=== PATIENT | female | born 1945 | race Caucasian/White ===

== ENCOUNTER 2020-01-08 15:36 | Outpatient (CLI) | payer MEDICARE, MEDICAID, SELFPAY ==
--- NOTE | 2020-01-08 | XR_ITS ---
WS: [id number] LEFT CALCANEUS TECHNIQUE: Lateral and tangential view. HISTORY: PAIN OF LEFT HEEL COMPARISON: None available. No fracture or bone destruction. There is a moderate to large calcaneal spur measuring 8.8 mm. No sadie ntifiable soft tissue thickening or fluid collection along the plantar aponeurosis. No soft tissue ed celestine. XR/XR calcaneus LT min 2V [id number] IMPRESSION: Moderate to large 8.8 mm calcaneal spur.
== END 2020-01-08 15:37 | disposition home or self-care (01) ==
PROVIDERS: Family Provider Family Medicine; Visit Provider Nurse Practitioner Family
DX: Z76.89 Persons encountering health services in other specified circumstances (principal)

== ENCOUNTER → 2020-01-29 13:18 | Outpatient (BNVA) | payer MEDICARE, MEDICAID, SELFPAY | PROVIDERS: Family Provider Family Medicine; Visit Provider Nurse Practitioner | DX: F20.5 Residual schizophrenia (principal) | CPT/HCPCS: 99213 ==

== ENCOUNTER 2020-04-06 14:51 | Outpatient (CLI) | payer MEDICARE, MEDICAID, SELFPAY | END 2020-04-06 14:52 | disposition home or self-care (01) | LOC: SPT 14:51 | PROVIDERS: Family Provider Family Medicine; Visit Provider Podiatrist Foot & Ankle Surgery | DX: Z46.89 Encounter for fitting and adjustment of other specified devices (principal); M72.2 Plantar fascial fibromatosis | CPT/HCPCS: 97760; L4397 ==

== ENCOUNTER → 2020-04-30 08:12 | Outpatient (BNVA) | payer MEDICARE, MEDICAID, SELFPAY | PROVIDERS: Family Provider Family Medicine; Visit Provider Nurse Practitioner | DX: F20.5 Residual schizophrenia (principal); F90.2 Attention-deficit hyperactivity disorder, combined type | CPT/HCPCS: 99213 ==

== ENCOUNTER → 2020-05-19 07:26 | Outpatient (BNVA) | payer MEDICARE, MEDICAID, SELFPAY | PROVIDERS: Family Provider Family Medicine; Referring Provider Nurse Practitioner Family; Visit Provider Specialist | DX: F20.5 Residual schizophrenia (principal); G40.909 Epilepsy, unspecified, not intractable, without status epilepticus; G31.84 Mild cognitive impairment of uncertain or unknown etiology | CPT/HCPCS: 96116; 99204 ==

== ENCOUNTER 2020-06-04 08:16 | Outpatient (CLI) | payer MEDICARE, MEDICAID, SELFPAY ==
[2020-06-04 10:31] LABS: Basophils # 0.2 10^3/uL (0.0-0.1); Basophils % 1.2 %; Eosinophils # 0.8 10^3/uL (0.0-0.8); Eosinophils % 6.1 %; Hematocrit 35.3 % (37.0-47.0); Hemoglobin 11.7 g/dL (11.5-15.3); Lymphocytes # 1.1 10^3/uL (0.8-4.8); Lymphocytes % 8.8 %; Mean Corpuscular HGB Conc 33.1 g/dL (30.0-36.0); Mean Corpuscular Hemoglobin 27.7 pg (28.0-34.0); Mean Corpuscular Volume 83.5 fL (81-99); Mean Platelet Volume 8.3 fL (7.4-10.4); Monocytes # 0.6 10^3/uL (0.2-0.9); Monocytes % 4.6 %; Neutrophils # 10.12 10^3/uL (1.8-7.7); Neutrophils % 78.9 %; Nucleated Red Blood Cells % 0 %; Platelet Count 431 10^3/cmm (130-400); Red Blood Count 4.23 10^6/uL (4.1-5.3); Red Cell Distribution Width 13.9 % (12.1-15.1); White Blood Count 12.8 10^3/uL (4.0-10.0)
[2020-06-04 11:04] LABS: LAB Peripheral Smear Sent for Review
[2020-06-04 11:12] LABS: Alanine Aminotransferase 19 U/L (0-33); Albumin Level 3.9 g/dL (3.5-5.2); Alkaline Phosphatase 191 IU/L (35-105); Anion Gap 15.3 (5-19); Aspartate Amino Transferase 14 U/L (0-32); Blood Urea Nitrogen 13 mg/dL (8-23); Calcium 8.6 mg/dL (8.5-10.5); Carbon Dioxide 26 mmol/L (22-29); Chloride 85 mmol/L (98-107); Globulin 3.2 g/dL (1.3-4.6); Glucose 142 mg/dL (65-115); Lactate Dehydrogenase 181 U/L (135-214); Osmolality Calculated 253 mOsm/kg (285-295); Potassium 4.3 mmol/L (3.5-5.1); Sodium 122 mmol/L (136-145); Total Bilirubin 0.2 mg/dL (0.15-1.2); Total Protein 7.1 g/dL (6.6-8.7)
[2020-06-04 11:29] LABS: Vitamin B12 > 2000 pg/mL (232-1245)
[2020-06-04 11:45] LABS: Erythrocyte Sedimentation Rate 25 mm/hr (0-15)
--- NOTE | 2020-06-04 12:25 | ONC CON_ITS ---
Dr. Aburto New Patient Note Patient: Ame Pascual Unit #: [id number]: 1945 Dicatated By: Sukhwinder Aburto M.D.Date of Visit: Jun 04, 2020 Onc MED New Patient/Consult Referring Physician: CORA GARCIA, F.N.P. Chief Complaint: Leukocytosis. History of Present Illness: This is a 75-year-old woman with a mild leukocytosis and thrombocytosis. This patient has longstanding bipolar disorder and schizophrenia. [facility] Her other medical illnesses include hypertension, hyperlipidemia, type 2 diabetes, and hypothyroidism. She reports having a history of mini strokes. She also reports having history of polio and rheumatic fever in childhood. I am asked to see her in regard to mildly elevated white blood cell and platelet counts. The available records include laboratory studies from 05/07/2020, at which time her CBC showed white blood cell count elevated at 17,900 and platelet count mildly elevated at 564,000. Her hemoglobin was low normal at 12.4 g with hematocrit 37%. The red cell indices were also in the low normal range. The reported differential included 89% granulocytes, 7% lymphocytes, and 3% monocytes. Comprehensive metabolic profile showed normal renal function with BUN 15 and creatinine 0.7 mg/dL. The bilirubin, SGOT, and SGPT T levels were all normal. The alkaline phosphatase was significantly elevated at 239/140 U/L. Her repeat CBC on 05/18/2020 showed similar findings with hemoglobin 12.3 g, white blood cell count 18,600, and platelet count 581,000. The CHEM profile showed just slightly elevated alkaline phosphatase at 184/140 U/L. In reviewing her records in [facility], there are total of 5 CBCs available ranging from May 2006 through October 2017. These all showed varying degrees of leukocytosis, ranging from 11,300 to 18,500 as well as mild to moderate elevated platelet counts, ranging from 366,000-607,000. Her hemoglobin has been consistently in the low normal range at 12 g. She has multiple cold complaints which are somewhat difficult to sort out, given her underlying psychiatric history. She does have somewhat limited activity, but she is able to do light work. Her ECOG score is 1. She has good appetite. She says her weight fluctuates up and down. She reports having a little fever every couple of days, but she does not actually take her temperature. She says her forehead just feels hot. She reports having associated chills and sweating. Her main complaint is pain in her legs which she describes as a shocking sensation. It occurs intermittently. She says that it started 15 years ago and that is been getting gradually worse. She also describes having numbness in her legs and tingling/burning on the bottoms of her feet. She has pain in her arms occasionally, and she also complains of having pain in the lower back. She has a variety of other complaints, none of which appear clinically relevant. Past Medical History: Her medical history includes bipolar disorder and schizophrenia, hypertension, hypothyroidism, and type II diabetes. She has reported history of ministrokes and reported history of polio and rheumatic fever in childhood. Past Surgical History: She has had arthroscopic right knee surgery. She reports having had hysterectomy/bilateral salpingectomy-oophorectomy and removal of a bone spur from the left heel, but I am not able to confirm that with records. Medications: Aspirin 1 Tablet (of 81 mg) Tablet, enteric coated Oral daily, Atorvastatin Calcium 1 Tablet (of 10 mg) Oral daily, Haloperidol 1.5 Tablet (of 10 mg) Oral daily, hydroCHLOROthiazide 1 Tablet (of 12.5 mg) Oral daily, Levothyroxine Sodium 1 Tablet (of 75 mcg) Oral daily, Loratadine 1 Tablet (of 10 mg) Oral daily, Losartan Potassium 1 Tablet (of 25 mg) Oral daily, metFORMIN HCl 1 Tablet (of 500 mg) Oral daily, Metoprolol Tartrate 1 Tablet (of 25 mg) Oral b.i.d., Omeprazole 1 Capsule (of 20 mg) Capsule Delayed Release Oral daily, Oxybutynin Chloride ER 1 Tablet (of 15 mg) Tablet SR 24 HR Oral daily, Trihexyphenidyl HCl 1 Tablet (of 2 mg) Oral daily Allergies: Geodon, Bgfhqlay-Ovofwyfph-Rplngxmx, and RisperDAL. Social History: Ms. Pascual is and she is retired. Ms. Pascual quit smoking 15 years ago but had smoked for 2 years. She has no history of drinking. Ms. Pascual reports the following support systems: lives alone, lives in an assisted living environment, supportive family/friends willing to assist with needs, and transportation problems exist and will require assistance. Her diet consists of regular meals. She indicates her activity level as: regular exercise. She has a history of smoking for a period of about 3 years, one carton of cigarettes per week. She quit smoking in 2004. She does not drink alcohol. She has had some alcohol use in the past, but never heavy. Family History: She indicates that her father of prostate cancer and that her mother had breast cancer. She also then claimed that 2 sisters have had breast cancer, but at least one of those was confirmed to be inaccurate. Review Of Symptoms: Constitutional - She has somewhat limited activity, she is able to do housework. Her appetite is good. She says her weight fluctuates up and down. She reports having a little fever every couple of days. She does not actually take her temperature, but her forehead feels warm. She has associated chills and sweating. Her ECOG score is 1, Eyes - She complains that her vision is sometimes blurry. She apparently has cataracts which are just being followed, ENMT - No hearing loss or tinnitus. No sinus congestion/drainage. She has had sore mouth associated with right lower dentures. She has a scratchy throat. No difficulty swallowing, Hematologic/Lymphatic - She has some bruising. No other bleeding, Respiratory - She says her breathing is sometimes hard. She has had a little bit of cough for the past several months. No pleuritic pain or hemoptysis, Cardiovascular - She has sharp twinges of chest pain pretty frequently, but mainly when she is going to bed at night. She does take nitroglycerin as needed. No palpitations, Gastrointestinal - She has nausea nearly every day. She sometimes has a little vomiting. She has occasional acid reflux. She has some constipation, which she manages with a laxative, typically about once a week. No blood in the stool or black stools, Genitourinary (F) - No dysuria or hematuria. She has urinary frequency with urgency and incontinence, Musculoskeletal - She has pain in her lower lumbar area. She reports having pain in her legs for 15 years, gradually getting worse. She occasionally has pain in her arms, Integumentary - No skin rash or other skin problems, Neurologic - She has a little headache. She occasionally has dizziness. She has an intermittent shocking sensation in both legs, and she has numbness in her legs intermittently. She also reports having tingling and burning on the bottoms of her feet, Psychiatric - She has anxiety and depression. She has difficulty falling asleep. Vital Signs: Performed on Jun 04, 2020 08:51: 5, 35.62 (HIGH), 1.88 sq.m, 61.75 in, 98 %, 60 /min, 22 /min, 141/90 mm(hg) (HIGH), 99.0 F (HIGH), and 193.2 lbs (HIGH). Physical Examination: Constitutional - She does not appear acutely ill, Eyes - Sclerae nonicteric. Conjunctivae clear, ENMT - No lesions noted in the oral cavity, Neck - No mass or thyromegaly, Hematologic/Lymphatic - No cervical, clavicular, or axillary adenopathy, Respiratory - Lungs are clear with good air movement bilaterally, Cardiovascular - Heart rhythm is regular. There is a I/ systolic murmur. There is no gallop or rub noted, Abdomen - Soft and non-tender. Liver and spleen are not enlarged. There is no abdominal mass or ascites noted and there is no inguinal adenopathy, Back/Spine - No spine or CVA tenderness noted, Extremities - No edema. Pedal pulses are palpable bilaterally, Integumentary - No rashes. No suspicious skin lesions noted, Neurologic - No focal neurologic deficits noted. Impression: 1. Patient with varying degrees of leukocytosis and thrombocytosis dating back to at least 2005. Given the duration and lack of overall progression, it is almost certainly a reactive process, though an underlying cause is not evident by clinical evaluation. 2. She has longstanding bipolar disorder and schizophrenia, [facility]. Her other medical illnesses include: 3. Hypertension. 4. Hyperlipidemia. 5. Type 2 diabetes. 6. Hypothyroidism. 7. She reports having history of mini strokes. 8. She reports having history of polio and rheumatic fever in childhood. Plan: The laboratory findings and clinical implications were reviewed with the patient. She has mildly elevated blood counts dating back to at least 2005. It has not been progressive, and it is extremely unlikely that it would represent a myeloproliferative process. She also had a moderately elevated alkaline phosphatase level, but that seems to have been a transient phenomenon, and not likely of clinical significance. As a precaution, I will recheck the blood count today along with comprehensive metabolic profile, sed rate, LDH level, and B12 level. With her red cell indices being borderline low, I also will check serum iron studies. In addition, I will request a FISH study for BCR/abl, and I will review the blood smear. She will have further evaluation as indicated. Signed By: Sukhwinder Aburto M.D. <<Signature on File>>
[2020-06-04 15:34] LABS: Iron 35 ug/dL (37-145); Percent Saturation 11.1 % (20-50); Total Iron Binding Capacity 313 mcg/dl; Unsaturated Iron Binding 278 ug/dL (112-347)
[2020-06-17 13:01] LABS: Miscellaneous Test See Scanned Lab Rpt
== END 2020-06-04 08:17 | disposition home or self-care (01) ==
LOC: ONCMED 08:19
PROVIDERS: PCP Nurse Practitioner Family; Referring Provider Nurse Practitioner Family; Visit Provider Internal Medicine Medical Oncology
DX: D72.829 Elevated white blood cell count, unspecified (principal); I10 Essential (primary) hypertension; E78.5 Hyperlipidemia, unspecified; E11.9 Type 2 diabetes mellitus without complications; E03.9 Hypothyroidism, unspecified; F31.9 Bipolar disorder, unspecified; F20.9 Schizophrenia, unspecified; Z86.73 Personal history of transient ischemic attack (TIA), and cerebral infarction without residual deficits; Z86.12 Personal history of poliomyelitis; Z79.84 Long term (current) use of oral hypoglycemic drugs
CPT/HCPCS: 36415; 80053; 82607; 83540; 83550; 83615; 85025; 85651; 88374; 99205

== ENCOUNTER → 2020-07-23 09:31 | Outpatient (BNVA) | payer MEDICARE, MEDICAID, SELFPAY | PROVIDERS: PCP Nurse Practitioner Family; Visit Provider Nurse Practitioner | DX: F20.5 Residual schizophrenia (principal) | CPT/HCPCS: 99213 ==

== ENCOUNTER → 2020-10-20 08:09 | Outpatient (BNVA) | payer MEDICARE, MEDICAID, SELFPAY | PROVIDERS: PCP Nurse Practitioner Family; Visit Provider Nurse Practitioner | DX: F20.5 Residual schizophrenia (principal) | CPT/HCPCS: 99213 ==

== ENCOUNTER 2020-11-08 15:30 | Outpatient (CLI) | payer MEDICARE, MEDICAID, SELFPAY ==
--- NOTE | 2020-11-08 15:43 | CT_ITS ---
WS: [id number] CT HEAD TECHNIQUE: Noncontrast CT of the head obtained from the skullbase to the vertex. CLINICAL INFORMATION: LEFT LEG WEAKNESS COMPARISON: None. DLP: 925.[address] scans at [facility] use at least one of these dose optimization techniques: automat ed exposure control; mA and/or kV adjustment per patient size (includes targeted exams where dose is matched to clinical indication); or iterative reconstruction. FINDINGS: No evidence of intracranial hemorrhage or mass effect. Ventricular system and basal cisterns are fuller nt. Moderate small vessel changes with moderate parenchymal volume loss. Periventricular small vessel changes. Tiny chronic lacunar infarct right lateral basal ganglia. No extra-axial fluid collections. No evidence of mass or mass effect. Paranasal sinuses and mastoid air cells are well aerated. .Normal visualized soft tissues. CT/CT head wo con* [id number] IMPRESSION: 1. No evidence of intracranial hemorrhage or mass effect. 2. Moderate small vessel changes with moderate parenchymal volume loss. 3. No acute intracranial findings.
== END 2020-11-08 15:31 | disposition home or self-care (01) ==
LOC: RADWPI 15:35
PROVIDERS: PCP Nurse Practitioner Family; Visit Provider Nurse Practitioner Family
DX: M62.81 Muscle weakness (generalized) (principal)
CPT/HCPCS: 70450

== ENCOUNTER → 2021-01-18 08:05 | Outpatient (BNVA) | payer MEDICARE, MEDICAID, SELFPAY | PROVIDERS: PCP Nurse Practitioner Family; Visit Provider Nurse Practitioner | DX: F20.5 Residual schizophrenia (principal); G31.84 Mild cognitive impairment of uncertain or unknown etiology | CPT/HCPCS: 99214 ==

== ENCOUNTER → 2021-04-19 07:42 | Outpatient (BNVA) | payer MEDICARE, MEDICAID, SELFPAY | PROVIDERS: PCP Nurse Practitioner Family; Visit Provider Nurse Practitioner | DX: F20.5 Residual schizophrenia (principal); G31.84 Mild cognitive impairment of uncertain or unknown etiology | CPT/HCPCS: 99214 ==

== ENCOUNTER → 2021-07-12 07:32 | Outpatient (BNVA) | payer MEDICARE, MEDICAID, SELFPAY | PROVIDERS: PCP Nurse Practitioner Family; Visit Provider Nurse Practitioner | DX: F20.5 Residual schizophrenia (principal); G31.84 Mild cognitive impairment of uncertain or unknown etiology | CPT/HCPCS: 99214 ==

== ENCOUNTER 2021-08-08 10:35 | Emergency (ER) | payer MEDICARE, MEDICAID, SELFPAY ==
[2021-08-08] VITALS (50 sets, daily range): BP systolic 106–178; BP diastolic 64–111; PULSE 78–102; RESP 16–18; TEMP 37.4; O2SAT 92–100; BMI 34.0
--- NOTE | 2021-08-08 10:44 | XRR_ITS ---
PROCEDURE INFORMATION: Exam: XR Chest Exam date and time: 08/08/2021 10:44 AM Age: 75 years old Clinical indication: Patient HX: History--fall this morning, dizziness, shortness of breath; Additional info: Dyspnea/cough TECHNIQUE: Imaging protocol: XR of the chest. Views: 1 view. COMPARISON: CR XR chest 2V* [id number] 08/06/2021 12:44 PM FINDINGS: Lungs: Unremarkable. No consolidation. Pleural spaces: Unremarkable. No pleural effusion. No pneumothorax. Heart/Mediastinum: Unremarkable. No cardiomegaly. Bones/joints: Unremarkable. XR/XR chest 1V portable [id number] IMPRESSION: No acute findings.
--- NOTE | 2021-08-08 10:45 | ECG_ITS ---
[facility] Test Date: 2021-08-08 Pat Name: Ame Pascual Department: Room: Gender: Female Proc Tech: : 1945 Requested By: Latrell Jackson Order Number: [id number] Reading MD: Measurements Intervals [place] Rate: 69 P: 60 WA: 187 QRS: 4 QRSD: 83 T: 31 QT: 424 QTc: 456 Interpretive Statements SINUS RHYTHM Compared to ECG 11/16/2017 15:08:33 Sinus tachycardia no longer present Incomplete right bundle-branch block no longer present [id number]
--- NOTE | 2021-08-08 10:52 | W.ED.SYNCOPE ---
HPI - Syncope General: Stated Complaint: LIGHT HEAD, SYNCOPE, PNEUMONIA Time Seen by Provider: 08/08/21 10:37 History of Present Illness: HPI narrative: 75-year-old female presents to the emergency room with complaints of lightheadedness near syncopal episode. She lives at an apartment in assisted living locally she was told yesterday she had pneumonia and started on antibiotics and inhaler. She refused by the 13th got lightheaded and dizzy after she got out of bed states she fell. She complaining of pain in her left hip and in her head. Patient does take aspirin is not on any other blood thinners. complaint: almost passed out Onset (ago): minute(s) Prodromal symptoms: lightheaded Witnessed: No Context: getting out of bed Injuries sustained associated with event: head Associated symptoms: Deny abdominal pain, chest pain, fever(s), headache(s), lightheadedness, nausea, short of breath, vertigo or weakness Treatments prior to arrival: none Review of Systems Const: Denies: fever(s) Card: Denies: chest pain or lightheadedness GI: Denies: abdominal pain or nausea Neuro: Denies: headache(s) or vertigo PFSH ED PFSH: Medical History (Updated 08/08/21 @ 15:13 by Latrell Vivar DO) Chronic headache Hypertension Hypothyroid Residual schizophrenia Rheumatoid arthritis Surgical History Status post debridement of bone spur Family History Other Cancer Denies family history of Diabetes Social History Smoking and tobacco status: former smoker Household members: none Housing: Apartment Current occupational status: retired Physical Exam Const: COMMON NORMALS: no acute distress GENERAL APPEARANCE: cooperative and comfortable ORIENTATION/CONSCIOUSNESS: Yes awake, Yes oriented to person, Yes oriented to place and Yes oriented to time HENMT: COMMON NORMALS: normocephalic, atraumatic and hearing grossly normal bilaterally HEAD & SCALP: normocephalic and atraumatic Eye: COMMON NORMALS: Equal, round and reactive pupils present, EOMs intact bilaterally, conjunctivae normal and no scleral icterus CONJUNCTIVA: Yes conjunctivae normal PUPIL: Yes Equal, round and reactive pupils present Neck/C-Spine: COMMON NORMALS: full ROM, no lymphadenopathy, supple and no JVD Resp: COMMON NORMALS: normal respiratory effort, No retractions, No use of accessory muscles and clear to auscultation bilaterally AUSCULTATION: clear to auscultation bilaterally Cardio: COMMON NORMALS: no JVD, regular rate, regular rhythm and No murmurs present (Cardio) RATE: regular rate RHYTHM: regular rhythm GI: COMMON NORMALS: Soft to palpation and No hepatosplenomegaly present AUSCULTATION: Yes normoactive bowel sounds PALPATION: Yes Soft to palpation, No Tenderness to palpation present (GI), No Guarding due to palpation present (GI) and Yes No hepatosplenomegaly present Extremity: COMMON NORMALS: normal to inspection, capillary refill normal, no clubbing, cyanosis or edema, no calf tenderness and no pedal edema Neuro: SENSORIUM/ORIENTATION: Yes oriented to person, Yes oriented to place and Yes oriented to time Skin: COMMON NORMALS: no rashes or lesions noted GENERAL SKIN EXAM: no rashes or lesions noted Course Vital Signs: Vital signs: Vital Signs Temperature 99.4 F 08/08/21 10:58 Pulse Rate 87 08/08/21 13:00 Respiratory Rate 16 08/08/21 13:00 Blood Pressure 177/76 08/08/21 13:10 Pulse Oximetry 97 08/08/21 15:00 MDM - Syncope MDM Narrative: Medical decision making narrative: Waiting on her second troponin on went to talk to the patient about the results. She is orthostatic neck that was what caused her problem initially and seen her with she had complained a little bit discomfort in the left leg but was able to move it fairly aggressively through a full range of motion without it causing any pain. She was complaining of pain worsening since then so it x-ray was done it was negative. Remainder of her labs and imaging reviewed as on the chart. She did have elevated calcium but her ionized calcium is normal. We will have asked her stop the hydrochlorothiazide. She will need further work-up for hypogammaglobinemia and evaluation of her thyroids and parathyroids. She is otherwise asymptomatic at this time this can be completed as an outpatient we will go and discharge her home for now after fluid she is feeling somewhat better. Chest x-ray was negative any she can stop the oral antibiotics there is no evidence of pneumonia. On initial exam patient was orthostatic that improved at the time of discharge Lab Data: Labs: Lab Results 08/08/21 08/08/21 08/08/21 11:10 11:10 11:10 WBC 11.8 10^3/uL H 10 ^3/uL (4.0-10.0) RBC 4.67 10^6/uL 10^6 /uL (4.1-5.3) Hgb 13.2 g/dL g/dL (11.5-15.3) Hct 39.0 % % (37.0-47.0) MCV 83.5 fl fl (81-99) MCH 28.3 pg pg (28.0-34.0) MCHC 33.8 g/dL g/dL (30.0-36.0) RDW 13.8 % % (12.1-15.1) Plt Count 427 10^3/cmm H 10 ^3/cmm (130-400) MPV 8.6 fL fL (7.4-10.4) Neut % (Auto) 78.5 % % Lymph % (Auto) 12.1 % % Crane % (Auto) 5.7 % % Eos % (Auto) 2.3 % % Baso % (Auto) 0.7 % % Neut # (Auto) 9.30 10^3/uL H 10 ^3/uL (1.8-7.7) Lymph # (Auto) 1.4 10^3/uL 10^3/ uL (0.8-4.8) Crane # (Auto) 0.7 10^3/uL 10^3/ uL (0.2-0.9) Eos # (Auto) 0.3 10^3/uL 10^3/ uL (0.0-0.8) Baso # (Auto) 0.1 10^3/uL 10^3/ uL (0.0-0.1) Nucleated RBC % (a uto) 0 % % Nucleated RBCs # 0.0 /100WBC /100W BC Sodium 130 mmol/L L mmol /L (136-145) Potassium 3.8 mmol/L mmol/L (3.5-5.1) Chloride 90 mmol/L L mmol/ L (98-107) Carbon Dioxide 28 mmol/L mmol/L (22-29) Anion Gap 15.8 (5-19) BUN 10 mg/dL mg/dL (8-23) Creatinine 0.8 mg/dL mg/dL (0.5-0.9) GFR Calculation Not Reportable Glucose 148 mg/dL H mg/dL (65-115) Calculated Osmolal ity 272 mOsm/kg L mOs m/kg (285-295) Calcium 11.9 mg/dL H mg/d L (8.5-10.5) Ionized Calcium Me as Total Bilirubin 0.2 mg/dL mg/dL (0.15-1.2) AST 15 U/L U/L (0-32) ALT 33 U/L U/L (0-33) Alkaline Phosphata se 180 IU/L H IU/L (35-105) Troponin T Baselin e 16 ng/L H ng/L (0-10) Troponin T 120 Min [place] Delta Troponin T Total Protein 6.6 g/dL g/dL (6.6-8.7) Albumin 3.8 g/dL g/dL (3.5-5.2) Globulin 2.8 g/dL g/dL (1.3-4.6) 08/08/21 08/08/21 13:15 13:55 WBC RBC Hgb Hct MCV MCH MCHC RDW Plt Count MPV Neut % (Auto) Lymph % (Auto) Crane % (Auto) Eos % (Auto) Baso % (Auto) Neut # (Auto) Lymph # (Auto) Crane # (Auto) Eos # (Auto) Baso # (Auto) Nucleated RBC % (a uto) Nucleated RBCs # Sodium Potassium Chloride Carbon Dioxide Anion Gap BUN Creatinine GFR Calculation Glucose Calculated Osmolal ity Calcium Ionized Calcium Me as 1.3 mmol/L mmol/L (1.1-1.4) Total Bilirubin AST ALT Alkaline Phosphata se Troponin T Baselin e Troponin T 120 Min [place] [place] 12.78 ng/L H ng/L (0-10) Delta Troponin T -3.22 ABS# L ABS# (0-10) Total Protein Albumin Globulin Discharge Plan Discharge Patient Disposition: Home Clinical Impression: Orthostasis, Hypercalcemia Condition: Stable Prescriptions: Discontinued hydrochlorothiazide 12.5 mg capsule 12.5 mg PO QAM RF: 0 doxycycline hyclate 100 mg capsule 100 mg PO BID RF: 0 No Action loratadine 10 mg capsule 10 mg PO QAM RF: 0 losartan [Cozaar] 25 mg tablet 25 mg PO QAM RF: 0 aspirin [Aspirin Low Dose] 81 mg tablet,delayed release (DR/EC) 81 mg PO QAM RF: 0 oxybutynin chloride 15 mg tablet extended release 24hr 15 mg PO QAM RF: 0 (DME) Night Splint See Rx Instructions .ROUTE .MEDSUPPLY Qty: 1 RF: 0 atorvastatin 10 mg tablet 10 mg PO BEDTIME RF: 0 levothyroxine 88 mcg tablet 88 mcg PO QAM RF: 0 famotidine 20 mg tablet 20 mg PO QAM RF: 0 albuterol sulfate 90 mcg/actuation HFA aerosol inhaler 2 puff INHALATION Q4H PRN (Reason: Shortness Of Breath) RF: 0 metformin 500 mg tablet extended release 24 hr 500 mg PO QAM RF: 0 metoprolol tartrate 25 mg Tablet 25 mg PO QAM RF: 0 nitrofurantoin monohyd/m-cryst 100 mg capsule 100 mg PO BID RF: 0 haloperidol 10 mg tablet 15 mg PO BEDTIME RF: 0 trihexyphenidyl 2 mg tablet 2 mg PO BEDTIME RF: 0 multivitamin Tablet 1 tab PO DAILY RF: 0 Discharge Orders: Discharge ED (Routine); Ordered 08/08/21 Ordered By: Latrell Vivar Referrals: Niecy Cevallos FNP [Primary Care Provider] - Discharge Diet: Usual diet Discharge Activity: Increase activity as tolerated Patient Instructions: Opioid Safety Activity Restrictions/Additional Instructions: Follow-up with your primary care doctor for elevated calcium within the next week Coding Level of Care Code ED Vessel Scrapper Helper for Chg Fwd Exam Comprehensive
[2021-08-08 11:26] LABS: Basophils # 0.1 10^3/uL (0.0-0.1); Basophils % 0.7 %; Eosinophils # 0.3 10^3/uL (0.0-0.8); Eosinophils % 2.3 %; Hemoglobin 13.2 g/dL (11.5-15.3); Lymphocytes # 1.4 10^3/uL (0.8-4.8); Lymphocytes % 12.1 %; Mean Corpuscular HGB Conc 33.8 g/dL (30.0-36.0); Mean Corpuscular Hemoglobin 28.3 pg (28.0-34.0); Mean Corpuscular Volume 83.5 fl (81-99); Mean Platelet Volume 8.6 fL (7.4-10.4); Monocytes # 0.7 10^3/uL (0.2-0.9); Monocytes % 5.7 %; Neutrophils % 78.5 %; Nucleated Red Blood Cells % 0 %; Platelet Count 427 10^3/cmm (130-400); Red Blood Count 4.67 10^6/uL (4.1-5.3); Red Cell Distribution Width 13.8 % (12.1-15.1); White Blood Count 11.8 10^3/uL (4.0-10.0)
[2021-08-08 11:42] LABS: Alanine Aminotransferase 33 U/L (0-33); Albumin Level 3.8 g/dL (3.5-5.2); Alkaline Phosphatase 180 IU/L (35-105); Anion Gap 15.8 (5-19); Aspartate Amino Transferase 15 U/L (0-32); Blood Urea Nitrogen 10 mg/dL (8-23); Calcium 11.9 mg/dL (8.5-10.5); Carbon Dioxide 28 mmol/L (22-29); Chloride 90 mmol/L (98-107); Globulin 2.8 g/dL (1.3-4.6); Glucose 148 mg/dL (65-115); Osmolality Calculated 272 mOsm/kg (285-295); Potassium 3.8 mmol/L (3.5-5.1); Sodium 130 mmol/L (136-145); Total Bilirubin 0.2 mg/dL (0.15-1.2); Total Protein 6.6 g/dL (6.6-8.7)
[2021-08-08 11:43] LABS: Troponin(5th) Baseline 16 ng/L (0-10)
--- NOTE | 2021-08-08 11:47 | PC.PHAR ---
PT STATES HER FAMILY ZEUS TAKES CARE OF HER MEDICATIONS-SCHULZ STATES THE PT TAKES METOPROLOL TARTRATE 25MG PO [facility] FILLED ON 06/28/21 90D/S FOR 25MG BID-NOTES ARE MADE IN THE PHARMACY COMMENTS
[2021-08-08] MEDS: sodium chloride 0.9% 1,000 ML 999 ML IV (12:44)
--- NOTE | 2021-08-08 12:45 | ECG_ITS ---
[facility] Test Date: 2021-08-08 Pat Name: Ame Pascual Department: Room: Gender: Female Student Assistant: : 1945 Requested By: Latrell Jackson Order Number: [id number] Reading MD: Measurements Intervals [place] Rate: 80 P: 69 MS: 189 QRS: 11 QRSD: 88 T: 31 QT: 402 QTc: 465 Interpretive Statements SINUS RHYTHM WITH OCCASIONAL VENTRICULAR PREMATURE COMPLEXES Compared to ECG 08/08/2021 10:55:37 Ventricular premature complex(es) now present [id number]
[2021-08-08 13:53] LABS: Troponin 5 2HR 12.78 ng/L (0-10)
[2021-08-08 14:01] LABS: Troponin 5 2HR Delta -3.22 ABS# (0-10)
[2021-08-08 14:46] LABS: Ionized Calcium 1.3 mmol/L (1.1-1.4)
--- NOTE | 2021-08-08 14:47 | XRR_ITS ---
PROCEDURE INFORMATION: Exam: XR Left Hip Exam date and time: 08/08/2021 2:47 PM Age: 75 years old Clinical indication: Patient HX: History--left hip pain, no known injury, possibly fell out of bed TECHNIQUE: Imaging protocol: XR Left hip. Views: 2 or 3 views hip with pelvis when performed. COMPARISON: No relevant prior studies available. FINDINGS: Bones/joints: Unremarkable. No acute fracture. There is osteopenia. Soft tissues: Unremarkable. XR/XR hip LT 2-3V wo/w pel* [id number] IMPRESSION: No acute findings. If there is desire for further evaluation, a CT scan could be performed.
== END 2021-08-08 15:42 | disposition home or self-care (01) ==
PROVIDERS: Emergency Provider Family Medicine; PCP Nurse Practitioner Family
DX: I95.1 Orthostatic hypotension (principal); E83.52 Hypercalcemia; Z79.82 Long term (current) use of aspirin; Z79.84 Long term (current) use of oral hypoglycemic drugs; I10 Essential (primary) hypertension; Z87.891 Personal history of nicotine dependence
CPT/HCPCS: 71045; 73502; 80053; 82330; 84484; 85025; 93005; 96360; 99284; J7030

== ENCOUNTER → 2021-08-15 13:14 | Outpatient (BNVA) | payer MEDICARE, MEDICAID, SELFPAY | PROVIDERS: PCP Nurse Practitioner Family; Referring Provider Physician Assistant; Visit Provider Nurse Practitioner Family | DX: N39.0 Urinary tract infection, site not specified (principal) | CPT/HCPCS: 81003; 87086 ==

== ENCOUNTER 2021-10-05 10:54 | Outpatient (CLI) | payer MEDICARE, MEDICAID, SELFPAY ==
--- NOTE | 2021-10-05 10:59 | MM_ITS ---
WS: [id number] BILATERAL DIGITAL SCREENING MAMMOGRAPHY WITH CAD CLINICAL INFORMATION: SCREENING HISTORY: Screening mammogram. No current complaints. COMPARISON: October 30, 2013 TECHNIQUE: Bilateral CC and MLO views. FINDINGS: Scattered fibroglandular densities bilaterally. Stable benign punctate calcifications. 7 mm ovoid nod ule along the right posterior nipple line. This is nonspecific and recommend further evaluation with right diagnostic mammography and ultrasound. Left breast is unchanged. No other suspicious abnormalit y. MM/[place] [id number] IMPRESSION: BI-RADS: 0-Incomplete: Need additional imaging evaluation FOLLOW UP: Need Additional Imaging Recommend right diagnostic mammography and ultrasound for further evaluation.
== END 2021-10-05 10:55 | disposition home or self-care (01) ==
LOC: RADSHAW 10:57
PROVIDERS: PCP Nurse Practitioner Family; Visit Provider Nurse Practitioner Family
DX: Z12.31 Encounter for screening mammogram for malignant neoplasm of breast (principal)
CPT/HCPCS: 77067

== ENCOUNTER → 2021-10-06 11:12 | Outpatient (BNVA) | payer MEDICARE, MEDICAID, SELFPAY | PROVIDERS: PCP Nurse Practitioner Family; Visit Provider Nurse Practitioner | DX: G31.84 Mild cognitive impairment of uncertain or unknown etiology (principal); F20.5 Residual schizophrenia | CPT/HCPCS: 99214 ==

== ENCOUNTER 2021-10-21 13:20 | Outpatient (CLI) | payer MEDICARE, MEDICAID, SELFPAY ==
--- NOTE | 2021-10-21 13:25 | US_ITS ---
WS: [id number] RIGHT DIGITAL MAMMOGRAPHY WITH CAD CLINICAL INFORMATION: 7MM NODULE COMPARISON: October 05, 2021 TECHNIQUE: 4 views of the right breast were obtained. FINDINGS: Scattered fibroglandular densities of the right breast. Stable 7 mm ovoid density along the right posterior nipple line. This persists on spot compression vi ews and ultrasound is pending. ULTRASOUND BREAST RIGHT TECHNIQUE: Ultrasound right breast focused area of concern. CLINICAL INFORMATION: 7MM NODULE COMPARISON: None. FINDINGS: Ultrasound right breast 12:00 position 3 cm from the nipple. Incidental simple cyst measuring 6 mm 12 :00 position. Slight ductal ectasia. No suspicious cystic or solid lesions. No lesions to target for biopsy. US/US breast RT limited* [id number] IMPRESSION: BI-RADS: 2-Benign FOLLOW UP: 1 Year Follow-up Recommend return to annual screening mammography.
== END 2021-10-21 13:21 | disposition home or self-care (01) ==
LOC: RADSHAW 13:24
PROVIDERS: PCP Nurse Practitioner Family; Visit Provider Nurse Practitioner Family
DX: N63.10 Unspecified lump in the right breast, unspecified quadrant (principal); N60.41 Mammary duct ectasia of right breast
CPT/HCPCS: 76642; 77065

== ENCOUNTER → 2021-12-29 12:00 | Outpatient (BNVA) | payer MEDICARE, MEDICAID, SELFPAY | PROVIDERS: PCP Nurse Practitioner Family; Visit Provider Nurse Practitioner | DX: F20.5 Residual schizophrenia (principal); G31.84 Mild cognitive impairment of uncertain or unknown etiology | CPT/HCPCS: 99214 ==

== ENCOUNTER → 2022-03-15 07:59 | Outpatient (BNVA) | payer MEDICARE, MEDICAID, SELFPAY | PROVIDERS: PCP Nurse Practitioner Family; Referring Provider Nurse Practitioner Family; Visit Provider Specialist | DX: M17.0 Bilateral primary osteoarthritis of knee (principal) | CPT/HCPCS: 73560; 73565; 99204 ==

== ENCOUNTER → 2022-03-20 13:07 | Outpatient (BNVA) | payer MEDICARE, MEDICAID, SELFPAY | PROVIDERS: PCP Nurse Practitioner Family; Visit Provider Nurse Practitioner | DX: G31.84 Mild cognitive impairment of uncertain or unknown etiology (principal); F20.5 Residual schizophrenia | CPT/HCPCS: 99214 ==

== ENCOUNTER → 2022-07-11 15:42 | Outpatient (BNVA) | payer MEDICARE, MEDICAID, SELFPAY | PROVIDERS: PCP Nurse Practitioner Family; Referring Provider Specialist; Visit Provider Specialist | DX: G62.89 Other specified polyneuropathies (principal) | CPT/HCPCS: 95909; 95911 ==

== ENCOUNTER → 2022-08-07 15:44 | Outpatient (BNVA) | payer MEDICARE, MEDICAID, SELFPAY | PROVIDERS: PCP Nurse Practitioner Family; Visit Provider Specialist | DX: G63 Polyneuropathy in diseases classified elsewhere (principal) | CPT/HCPCS: 99213 ==

== ENCOUNTER 2022-12-30 12:25 | Inpatient (IN) | payer MEDICARE, MEDICAID, SELFPAY ==
[2022-12-30] VITALS (26 sets, daily range): BP systolic 118–187; BP diastolic 60–108; PULSE 80–125; RESP 11–23; TEMP 36.7–38.2; O2SAT 95–100; BMI 31.7
--- NOTE | 2022-12-30 12:35 | ECG_ITS ---
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 Measurements Intervals [place] Rate: 88 P: 81 [place]: 184 QRS: 42 QRSD: 81 T: 48 QT: 388 QTc: 470 Interpretive Statements SINUS RHYTHM INTERPRETATION BASED ON A DEFAULT AGE OF 40 YEARS Compared to ECG 08/08/2021 12:45:57 Ventricular premature complex(es) no longer present Electronically Signed On 12-30-2022 15:19:41 BOTTLE CAPPING MACHINE OPERATOR by Frederick Tinoco M.D. [email or web address]
--- NOTE | 2022-12-30 12:39 | XRR_ITS ---
PROCEDURE INFORMATION: Exam: XR Chest Exam date and time: 12/30/2022 12:55 PM Age: 77 years old Clinical indication: Pain; Chest pressure; Additional info: Cp TECHNIQUE: Imaging protocol: Radiologic exam of the chest. Views: 1 view. COMPARISON: CR XR chest 1V portable [id number] 08/08/2021 10:49 AM FINDINGS: Lungs: Lung volumes are somewhat decreased which may be due to body habitus. No infiltrates. Pleural spaces: Unremarkable. No pleural effusion. No pneumothorax. Heart/Mediastinum: Unremarkable. No cardiomegaly. Bones/joints: Unremarkable. XR/XR chest 1V portable [id number] IMPRESSION: Decreased lung volumes otherwise negative chest.
--- NOTE | 2022-12-30 12:40 | W.ED.CHESTPA ---
HPI - Chest Pain General: Chief Complaint: Chest Pain Stated Complaint: CHEST PAIN Time Seen by Provider: 12/30/22 12:28 Source: patient and EMS Mode of arrival: EMS Limitations: no limitations History of Present Illness: This patient was transported to the emergency department from her home. She states that the predominant reason she called EMS is because she had episode of chest pain last night approximately 1215 that woke her from sleep and then lasted for a very short time 5 minutes or less and then she went back to sleep she states she had other episodes through the night. She states that today approximately 12:00 noon she developed chest pain and contacted EMS. Upon arrival EMS noted a unremarkable twelve-lead EKG but proceeded to give her nitroglycerin and aspirin. She had improvement in her symptoms she thinks after the nitroglycerin. She normally has nitroglycerin at home but did not take any in the last 24 hours. She does have a history of coronary artery disease and states she had a heart attack in the past. She also relates that over the past 4 to 5 days she has had intermittent fevers body aches chills and felt weak. She denies any known exposure to infectious disease. She states she has had a nonproductive cough. She has not had any vomiting or diarrhea but has had decreased oral intake. She is fully immunized against COVID as well as current influenza strain. MD complaint: chest heaviness Onset: during rest Pain location: substernal Relieving factors: nitroglycerin Associated symptoms: Reports fever(s) and nausea; Deny abdominal pain, dyspnea, palpitations, syncope or vomiting Review of Systems Const: Reports: fever(s), body aches and change in appetite Eyes: Denies: change in vision ENMT: Reports: throat pain; Denies: odynophagia, hoarseness, nasal discharge or nasal congestion Card: Reports: chest pain; Denies: palpitations, syncope or pre-syncope Resp: Reports: non-productive cough; Denies: dyspnea, productive cough, wheezing or stridor GI: Reports: nausea; Denies: abdominal pain, vomiting or diarrhea : Denies: flank pain, difficulty voiding, dysuria or urinary frequency Musc: Denies: neck pain, back pain, extremity pain or extremity swelling Skin/Breast: Denies: rash Neuro: Denies: headache(s), numbness in extremities or weakness in extremities PFSH ED PFSH: Medical History Chronic headache Hypertension Hypothyroid Mixed stress and urge urinary incontinence Psychiatric care Recurrent UTI Residual schizophrenia Rheumatoid arthritis Surgical History Status post debridement of bone spur Family History Mother CAD (coronary artery disease) Father CAD (coronary artery disease) Other Cancer Social History Smoking and tobacco status: never smoked Household members: none Housing: Apartment Current occupational status: retired Physical Exam Narrative: EXAM NARRATIVE: She appears to be comfortable in no acute distress. She does answer questions and is slow deliberate fashion but ultimately gets to an accurate answer. Const: COMMON NORMALS: no acute distress, average body habitus and patient oriented x3 GENERAL APPEARANCE: cooperative HENMT: COMMON NORMALS: normocephalic, Normal nasal mucous membranes and turbinates present, moist oral mucous membranes and oropharynx normal HEAD & SCALP: normocephalic FACE & SINUS: normal facial exam NOSE: Normal nasal mucous membranes and turbinates present Eye: COMMON NORMALS: Equal, round and reactive pupils present, conjunctivae normal and no scleral icterus CONJUNCTIVA: Yes conjunctivae normal PUPIL: Yes Equal, round and reactive pupils present Neck/C-Spine: COMMON NORMALS: full ROM, no lymphadenopathy, supple, no JVD and No carotid bruits Chest: COMMONS NORMALS: normal inspection of the chest Resp: COMMON NORMALS: normal respiratory effort, No retractions, No use of accessory muscles and clear to auscultation bilaterally AUSCULTATION: clear to auscultation bilaterally Cardio: COMMON NORMALS: no JVD, regular rate, regular rhythm, No murmurs present (Cardio) and Peripheral pulses 2+ throughout RATE: regular rate RHYTHM: regular rhythm PERIPHERAL PULSES: Peripheral pulses 2+ throughout GI: COMMON NORMALS: Normal to inspection, nondistended, normoactive bowel sounds present, Soft to palpation, non-tender and No hepatosplenomegaly present PALPATION: Yes Soft to palpation and Yes No hepatosplenomegaly present Back/Pelvis: COMMON NORMALS: thoracic and lumbar spine normal to inspection, no thoracic nor lumbar tenderness, thoraco-lumbar ROM normal and straight leg raise negative bilaterally Extremity: COMMON NORMALS: normal to inspection, full ROM, capillary refill normal, no calf tenderness and no pedal edema Neuro: COMMON NORMALS: patient oriented x3, moves all extremities, no focal motor deficits and no sensory deficits noted Psych: COMMON NORMALS: mental status grossly normal, denies homicidal ideation and denies suicidal ideation ACTIVITY/MOTOR BEHAVIOR: Yes appropriate eye contact and Yes psychomotor slowing MOOD & AFFECT: Yes Flat affect present THOUGHT PROCESS: Circumstantial thought process present ATTENTION/CONCENTRATION: Yes attention grossly intact Skin: COMMON NORMALS: no rashes or lesions noted and turgor normal GENERAL SKIN EXAM: no rashes or lesions noted and turgor normal Course Reevaluation(s): Reevaluation #1: Significant leukocytosis is noted. She also has a transaminitis with an elevation in her alkaline phosphatase. All of these values seem to be more elevated today. She does have a normal total bilirubin which makes it less likely that this is a biliary tract obstructive process etc. He does take a statin as well as metformin and this may or may not be a contributing factor to these findings. However in light of her leukocytosis today I think further imaging is indicated. Time: 13:50 Vital Signs: Vital signs: Vital Signs Temperature 98.0 F 12/30/22 12:29 Pulse Rate 85 12/30/22 15:00 Respiratory Rate 16 12/30/22 15:00 Blood Pressure 155/78 12/30/22 15:00 Pulse Oximetry 99 12/30/22 15:00 Oxygen Delivery Me thod 12/30/22 12:45 MDM - Chest Pain Medical Decision Making This patient was transported to our emergency department because of concerns about chest pain symptoms. The symptoms were fleeting in nature and nonsustained. Also has a history of schizophrenia and takes medications for that condition. Her evaluation was notable for a somewhat difficult historian however a broad differential was entertained. Her initial electrocardiograms were reassuring. Initial troponin was elevated over usual cutoff however subsequent troponin was in the negative delta making ACS unlikely at this time. Particularly in light of her short duration of symptoms, reassuring EKGs etc. Significant leukocytosis was noted on her CBC and further investigation to ascertain possible etiologies. It should be noted that she had a prior history of a leukocytosis in the past but of lesser nature. Chest x-ray did not reveal any findings suggestive of pneumonia, CT scan of abdomen pelvis did show some mild inflammatory changes possibly related to pyelonephritis versus other potential conditions. However biliary tract disease unlikely that it is in an obstructive fashion given normal total bilirubin. She does have a transaminitis which may be due to medications and has previously been noted. There is that predominant condition at this time is pyelonephritis based upon the current clinical picture. It would be necessary to follow her troponins and serial EKGs to ensure no evidence ongoing cardiac ischemia issues but that seems unlikely at this point. She received loading dose of antibiotics and was admitted to the hospitalist service. Medical Records I reviewed the patient's medical records. Previous evaluation by oncology due to inexplicable leukocytosis but not to the level that were seen on today's CBC. Lab Data I reviewed the patient's lab results. 12/30/22 12:25 12/30/22 12:25 Radiology Impressions Chest X-Ray 12/30/22 12:39 IMPRESSION: Decreased lung volumes otherwise negative chest. Abdomen/Pelvis CT 12/30/22 13:51 IMPRESSION: 1. Mild localized inflammatory changes left anterior pararenal space of uncertain etiology. Consider acute left pyelonephritis, left renal vein thrombosis or focal pancreatitis involving the pancreatic tail. Contrast enhanced CT exam suggested for further assessment. 2. Mild periaortic retroperitoneal lymphadenopathy, nonspecific, possibly long-standing. Recommend repeat CT exam in 6 months for continued surveillance. 2. Additional nonemergent findings as above. Laboratory Results WBC 33.9 10^3/uL (4.0-10.0) H* 12/30/22 12:25 RBC 4.50 10^6/uL (4.1-5.3) 12/30/22 12:25 Hgb 12.6 g/dL (11.5-15.3) 12/30/22 12:25 Hct 37.6 % (37.0-47.0) 12/30/22 12:25 MCV 83.6 fl (81-99) 12/30/22 12:25 MCH 28.0 pg (28.0-34.0) 12/30/22 12:25 MCHC 33.5 g/dL (30.0-36.0) 12/30/22 12:25 RDW 14.1 % (12.1-15.1) 12/30/22 12:25 Plt Count 743 10^3/cmm (130-400) H 12/30/22 12:25 MPV 8.9 fL (7.4-10.4) 12/30/22 12:25 Neut % (Auto) 89.6 % 12/30/22 12:25 Lymph % (Auto) 4.5 % 12/30/22 12:25 [place] % (Auto) 4.6 % 12/30/22 12:25 Eos % (Auto) 0.3 % 12/30/22 12:25 Baso % (Auto) 0.4 % 12/30/22 12:25 Neut # (Auto) 30.32 10^3/uL (1.8-7.7) H 12/30/22 12:25 Lymph # (Auto) 1.5 10^3/uL (0.8-4.8) 12/30/22 12:25 [place] # (Auto) 1.6 10^3/uL (0.2-0.9) H 12/30/22 12:25 Eos # (Auto) 0.1 10^3/uL (0.0-0.8) 12/30/22 12:25 Baso # (Auto) 0.1 10^3/uL (0.0-0.1) 12/30/22 12:25 Nucleated RBC % (auto) 0 % 12/30/22 12:25 Nucleated RBCs # 0.0 /100WBC 12/30/22 12:25 Sodium 129 mmol/L (136-145) L 12/30/22 12:25 Potassium 3.5 mmol/L (3.5-5.1) 12/30/22 12:25 Chloride 88 mmol/L (98-107) L 12/30/22 12:25 Carbon Dioxide 21 mmol/L (22-29) L 12/30/22 12:25 Anion Gap 23.5 (5-19) H 12/30/22 12:25 BUN 20 mg/dL (8-23) 12/30/22 12:25 Creatinine 1.4 mg/dL (0.5-0.9) H 12/30/22 12:25 GFR Calculation Not Reportable 12/30/22 12:25 Glucose 123 mg/dL (65-115) H 12/30/22 12:25 Calculated Osmolality 272 mOsm/kg (285-295) L 12/30/22 12:25 Calcium 9.3 mg/dL (8.5-10.5) 12/30/22 12:25 Total Bilirubin 0.5 mg/dL (0.15-1.2) 12/30/22 12:25 AST 211 U/L (0-32) H 12/30/22 12:25 ALT 86 U/L (0-33) H 12/30/22 12:25 Alkaline Phosphatase 241 U/L (35-105) H 12/30/22 12:25 Troponin T Baseline 33 ng/L (0-10) H 12/30/22 12:25 Troponin T 120 Minute 27.05 ng/L (0-10) H 12/30/22 14:25 Delta Troponin T -5.95 ABS# (0-10) L 12/30/22 14:25 Total Protein 7.7 g/dL (6.6-8.7) 12/30/22 12:25 Albumin 3.7 g/dL (3.5-5.2) 12/30/22 12:25 Globulin 4.0 g/dL (1.3-4.6) 12/30/22 12:25 Urine Color Yellow (Yellow) 12/30/22 14:02 Urine Appearance Cloudy (CLEAR) A 12/30/22 14:02 Urine pH 6 (5-7) 12/30/22 14:02 Ur Specific [place] 1.010 (1.005-1.030) 12/30/22 14:02 Urine Protein 2+ (Negative) H 12/30/22 14:02 Urine Glucose (UA) Norm (Normal) 12/30/22 14:02 Urine Ketones 1+ (Negative) H 12/30/22 14:02 Urine Blood 3+ (Negative) H 12/30/22 14:02 Urine Nitrate Negative (Negative) 12/30/22 14:02 Urine Bilirubin Neg (Negative) 12/30/22 14:02 Urine Urobilinogen Norm mg/dL (Negative) 12/30/22 14:02 Ur Leukocyte Esterase 2+ (Negative) H 12/30/22 14:02 Urine RBC None /hpf (0-2) 12/30/22 14:02 Urine WBC 55-80 /hpf (0-5) H 12/30/22 14:02 Ur Squamous Epith Cells 0-4 /hpf (0-5) H 12/30/22 14:02 Amorphous Sediment Not Reportable 12/30/22 14:02 Urine Bacteria 4+ /hpf (NONE) H 12/30/22 14:02 Influenza Type A Ag negative (Negative) 12/30/22 12:50 Influenza Type B Ag negative (Negative) 12/30/22 12:50 SARS-CoV-2 Ag (Rapid) negative (Negative) 12/30/22 12:50 EKG Data EKG 1: I personally reviewed and interpreted this EKG as follows: Interpretation: Contemporaneous review of resting EKG reveals a ventricular rate of 88 bpm. She has normal [place] interval, QRS duration, corrected QT interval. Normal axis. No acute ST-T wave changes or other concerns noted at this time. EKG 2: I personally reviewed and interpreted this EKG as follows: Interpretation: Contemporaneous review of second EKG this visit reveals a ventricular rate of 83 bpm. Normal [place] interval, QRS duration, corrected QT interval. Normal axis. Consistent with normal sinus rhythm. No acute ST-T wave changes noted. Discharge Plan Discharge Clinical Impression: Acute pyelonephritis, Residual schizophrenia, Transaminitis Condition: Stable Prescriptions: No Action loratadine 10 mg capsule 10 mg PO QAM losartan [Cozaar] 25 mg tablet 25 mg PO QAM loperamide [Imodium A-D] 2 mg capsule 2 mg PO Q6H PRN (Reason: Diarrhea) nitroglycerin 0.3 mg tablet, sublingual 0.3 mg sublingual Q5M PRN (Reason: Chest Pain) Rx Instructions: do not exceed 3 doses per episode hydrochlorothiazide 12.5 mg capsule 12.5 mg PO DAILY levocetirizine [24HR Allergy Relief] 5 mg tablet 5 mg PO DAILY trihexyphenidyl 2 mg tablet 2 mg PO BEDTIME Qty: 30 2RF haloperidol 10 mg tablet 15 mg PO BEDTIME Qty: 45 2RF atorvastatin 10 mg tablet 10 mg PO BEDTIME famotidine 20 mg tablet 20 mg PO QAM metformin 500 mg tablet extended release 24 hr 500 mg PO QAM metoprolol tartrate 25 mg Tablet 25 mg PO BID levothyroxine 88 mcg tablet 100 mcg PO QAM Hair,Skin and Nails 1 mg iron-66.7 mcg-1,000 mcg Tablet 1 tab PO DAILY Referrals: Sharon Cabral MD [Primary Care Provider] - Coding Level of Care Code ED Gear Grinding Machine Operator for Chg Fwd
[2022-12-30] MEDS: sodium chloride 0.9% 500 ML 999 ML IV (12:48)
[2022-12-30 13:05] LABS: Basophils # 0.1 10^3/uL (0.0-0.1); Basophils % 0.4 %; Eosinophils # 0.1 10^3/uL (0.0-0.8); Eosinophils % 0.3 %; Hematocrit 37.6 % (37.0-47.0); Hemoglobin 12.6 g/dL (11.5-15.3); Lymphocytes # 1.5 10^3/uL (0.8-4.8); Lymphocytes % 4.5 %; Mean Corpuscular HGB Conc 33.5 g/dL (30.0-36.0); Mean Corpuscular Volume 83.6 fl (81-99); Mean Platelet Volume 8.9 fL (7.4-10.4); Monocytes # 1.6 10^3/uL (0.2-0.9); Monocytes % 4.6 %; Neutrophils # 30.32 10^3/uL (1.8-7.7); Neutrophils % 89.6 %; Nucleated Red Blood Cells % 0 %; Platelet Count 743 10^3/cmm (130-400); Red Cell Distribution Width 14.1 % (12.1-15.1)
[2022-12-30 13:19] LABS: White Blood Count 33.9 10^3/uL (4.0-10.0)
[2022-12-30 13:20] LABS: Alanine Aminotransferase 86 U/L (0-33); Albumin Level 3.7 g/dL (3.5-5.2); Alkaline Phosphatase 241 U/L (35-105); Anion Gap 23.5 (5-19); Aspartate Amino Transferase 211 U/L (0-32); Blood Urea Nitrogen 20 mg/dL (8-23); Calcium 9.3 mg/dL (8.5-10.5); Carbon Dioxide 21 mmol/L (22-29); Chloride 88 mmol/L (98-107); Glucose 123 mg/dL (65-115); Osmolality Calculated 272 mOsm/kg (285-295); Potassium 3.5 mmol/L (3.5-5.1); Sodium 129 mmol/L (136-145); Total Bilirubin 0.5 mg/dL (0.15-1.2); Total Protein 7.7 g/dL (6.6-8.7)
[2022-12-30 13:21] LABS: Troponin(5th) Baseline 33 ng/L (0-10)
[2022-12-30 13:31] LABS: Influenza A by IFA negative (Negative); Influenza B by IFA negative (Negative); SARS Covid-2 Antigen negative (Negative)
--- NOTE | 2022-12-30 13:51 | CTR_ITS ---
PROCEDURE INFORMATION: Exam: CT Abdomen And Pelvis Without Contrast Exam date and time: 12/30/2022 2:13 PM Age: 77 years old Clinical indication: Other: Leukocytosis w/transminitis; Patient HX: Leukocytosis with transminitis TECHNIQUE: Imaging protocol: Computed tomography of the abdomen and pelvis without contrast. Radiation optimization: All CT scans at this facility use at least one of these dose optimization techniques: automated exposure control; mA and/or kV adjustment per patient size (includes targeted exams where dose is matched to clinical indication); or iterative reconstruction. Other protocol: This patient has received 0 known CTs and 0 known cardiac nuclear medicine studies in the 12 months prior to the current study. COMPARISON: CR XR hip LT 2-3V wo/w pel* [id number] 08/08/2021 2:54 PM RADIATION DOSE METRICS: Total DLP (mGy-cm): 730.13 FINDINGS: Lungs: Lung bases are clear. Liver: Normal. No mass. Gallbladder and bile ducts: Normal. No calcified stones. No ductal dilation. Pancreas: Pancreas is otherwise unremarkable. Main pancreatic duct is not dilated. Spleen: Normal. No splenomegaly. Adrenal glands: Normal. No mass. Kidneys and ureters: The kidneys are otherwise unremarkable. No calculi or hydronephrosis detected. Stomach and bowel: Mild-moderate degree of retained stool throughout the large bowel otherwise GI tract is unremarkable. Appendix: No evidence of appendicitis. Intraperitoneal space: Unremarkable. No free air. No significant fluid collection. Vasculature: Scattered atherosclerotic changes of the abdominal aorta and iliac vessels. No aortic aneurysm. Lymph nodes: Mild left periaortic lymphadenopathy, nonspecific. Urinary bladder: Urinary bladder is moderately distended. Reproductive: Unremarkable as visualized. Bones/joints: Moderate degenerative changes involving the disc and endplates at L2-L3. No acute bony abnormalities. Soft tissues: There are mild localized inflammatory changes left anterior pararenal space posterior-inferior to the tail the pancreas with some thickening of perinephric fascia etiology of which is unclear. In view of the location of these changes possibility of left pyelonephritis or left renal vein thrombosis should be considered. Focal pancreatitis arising from the tail the pancreas is felt less likely. CT/CT abdomen pelvis wo con [id number] IMPRESSION: 1. Mild localized inflammatory changes left anterior pararenal space of uncertain etiology. Consider acute left pyelonephritis, left renal vein thrombosis or focal pancreatitis involving the pancreatic tail. Contrast enhanced CT exam suggested for further assessment. 2. Mild periaortic retroperitoneal lymphadenopathy, nonspecific, possibly long-standing. Recommend repeat CT exam in 6 months for continued surveillance. 2. Additional nonemergent findings as above.
[2022-12-30 14:25] LABS: Add Urine Microscopic? YES; Bilirubin Urine Neg (Negative); Blood Urine 3+ (Negative); Glucose Urine UA Norm (Normal); Ketones Urine 1+ (Negative); Leukocyte Esterase Urine 2+ (Negative); Nitrate Urine Negative (Negative); Protein Urine 2+ (Negative); Urine Appearance Cloudy (CLEAR); Urine Color Yellow (Yellow); Urobilinogen Urine Norm (Negative); pH Urine 6 (5-7)
[2022-12-30 14:28] LABS: Add Urine Culture? Yes; Bacteria Urine 4+ /hpf; Squamous Epithelial Cell Urine 0-4 /hpf (0-5); WBC Urine 55-80 /hpf (0-5)
--- NOTE | 2022-12-30 14:39 | ECG_ITS ---
[facility] Test Date: 2022-12-30 Pat Name: Ame Pascual Department: Room: Gender: Female Professional Nurse: : 1945 Requested By: Ham Veras Order Number: [id number] Daniel MD: Frederick Tinoco M.D. Measurements Intervals [place] Rate: 83 P: 73 [place]: 205 QRS: 35 QRSD: 87 T: 44 QT: 404 QTc: 475 Interpretive Statements SINUS RHYTHM Compared to ECG 12/30/2022 12:30:17 No significant changes Electronically Signed On 12-30-2022 15:20:19 GUN SYNCHRONIZER by Frederick Tinoco M.D. [id number]
[2022-12-30 14:57] LABS: Troponin 5 2HR 27.05 ng/L (0-10)
[2022-12-30 14:58] LABS: Troponin 5 2HR Delta -5.95 ABS# (0-10)
[2022-12-30] MEDS: cefTRIAXone 2,000 MG in sodium chloride 0.9% (plus) 50 ML 100 MG IV (15:27)
[2022-12-30 15:52] LABS: Lipase 13 U/L (13-60)
--- NOTE | 2022-12-30 17:28 | P.HP_ITS ---
Providers/Chief Complaint Admitting Physician: Denis Cornejo MD Primary Care Provider: Sharon Cabral MD Chief Complaint: CHEST PAIN History of Present Illness Ame Pascual is a 77 year old female with past medical history of schizophrenia, stress incontinence, hypertension, hypothyroidism presented to the ER today with complaints of cold sweats, heartburn, nausea along with pain and burning while passing urine for last 3 to 4 days. Patient thought she has been having heart attack so she came to the ER. In the ER she was found to have a leukocytosis of 33,000 and a creatinine of 1.[address] abdomen pelvis was done which is consistent with left-sided pyelonephritis since hospital service was consulted for admission. Patient herself denies any headache, dizziness, palpitations, diarrhea. States she has been having ear infection for which she has been following with [facility] for last 1 year but denies any active complaints right now related to the ear. Review of Systems General: Reports: 10 or more systems reviewed and unremarkable except in HPI and below Const: Denies: fever(s), chills, body aches, change in appetite, change in weight, malaise, night sweats, diaphoresis, change in sleep pattern, daytime sleepiness or snoring Eyes: Denies: change in vision, blurry vision, photophobia, eye discomfort or eye discharge ENMT: Denies: throat pain, enlarged tonsils, hoarseness, mouth pain, oral sores, dry mouth, tinnitus, nasal congestion or post nasal drip Card: Denies: chest pain, palpitations, irregular heart rhythm, edema, swelling of feet/ankles, lightheadedness, syncope, pre-syncope, dyspnea on exertion, orthopnea, leg pain with exertion or acrocyanosis Resp: Denies: dyspnea, productive cough, non-productive cough, wheezing, stridor, pain on inspiration, change in phlegm color, hemoptysis or chest congestion GI: Denies: abdominal pain, nausea, vomiting, hematemesis, coffee ground em esis, dysphagia, heartburn, diarrhea, constipation, bloating, GI cramping, change in bowel habits, pain on defecation, hematochezia or melena : Denies: flank pain, dysuria, urinary frequency, urinary urgency, urinary hesitancy, nocturia or hematuria Musc: Denies: neck pain, back pain, extremity pain, joint pain, joint swelling, joint redness, joint stiffness or limited range of motion Neuro: Denies: headache(s), numbness in extremities, weakness in extremities, sensory changes, lack of coordination, difficulty walking, frequent falls, dizziness, vertigo, confusion, Slurred speech present, difficulty communicating thoughts or seizure-like activity Psych: Denies: anxiety, depression, mood swings, panic attacks, hopelessness or irritability Endo: Denies: polyuria, polydipsia, tired all the time, cold intolerance, excessive sweating, flushing or heat intolerance Matt/Lymph: Denies: easy bruising or easy bleeding All/Imm: Denies: tongue swelling, facial swelling or acute wheezing Medications/Allergies Home Medications Medication Instructions Recorded Confirmed Last Taken Type loratadine 10 mg capsule 10 mg PO QAM 01/29/20 12/30/22 Unknown History losartan 25 mg tablet (Cozaar) 25 mg PO QAM 01/29/20 12/30/22 Unknown History atorvastatin 10 mg tablet 10 mg PO BEDTIME 08/08/21 12/30/22 Unknown History famotidine 20 mg tablet 20 mg PO QAM 08/08/21 12/30/22 Unknown History metformin 500 mg tablet,extended 500 mg PO QAM 08/08/21 12/30/22 Unknown History release 24 hr metoprolol tartrate 25 mg tablet 25 mg PO BID 08/08/21 12/30/22 Unknown History levothyroxine 88 mcg tablet 100 mcg PO QAM 03/15/22 12/30/22 Unknown History hydrochlorothiazide 12.5 mg capsule 12.5 mg PO DAILY 07/11/22 12/30/22 Unknown History levocetirizine 5 mg tablet (24HR 5 mg PO DAILY 07/11/22 12/30/22 Unknown History Allergy Relief) loperamide 2 mg capsule (Imodium 2 mg PO Q6H PRN Diarrhea 07/11/22 12/30/22 Unknown History A-D) nitroglycerin 0.3 mg sublingual 0.3 mg sublingual Q5M PRN Chest 07/11/22 12/30/22 Unknown History tablet Pain haloperidol 10 mg tablet 15 mg PO BEDTIME #45 tabs 11/29/22 12/30/22 Unknown Rx trihexyphenidyl 2 mg tablet 2 mg PO BEDTIME #30 tabs 11/29/22 12/30/22 Unknown Rx multivit,Ca,min-iron gluconat 1 1 tab PO DAILY 12/30/22 12/30/22 Unknown History mg-FA 66.7 mcg-biotin 1,000 mcg tablet (Hair,Skin and Nails) Allergies Allergy/AdvReac Type Severity Reaction Status Date / Time aripiprazole [From Abilify] Allergy Unknown Verified 12/30/22 13:16 fluphenazine [From Prolixin] Allergy Unknown Verified 12/30/22 13:16 house dust Allergy Unknown Verified 12/30/22 13:16 pollen extracts Allergy Unknown Verified 12/30/22 13:16 risperidone [From Risperdal] Allergy Unknown Verified 12/30/22 13:16 thiothixene [From Navane] Allergy Unknown Verified 12/30/22 13:16 ziprasidone [From Geodon] Allergy Unknown Verified 12/30/22 13:16 PFSH Acute PFSH: Medical History (Updated 12/30/22 @ 17:29 by Denis Cornejo MD) Chronic headache Hypertension Hypothyroid Mixed stress and urge urinary incontinence Psychiatric care Recurrent UTI Residual schizophrenia Rheumatoid arthritis UTI (urinary tract infection) Surgical History (Updated 12/30/22 @ 17:29 by Denis Cornejo MD) History of bilateral cataract extraction Hx of hysterectomy Status post debridement of bone spur Family History Mother CAD (coronary artery disease) Father CAD (coronary artery disease) Other Cancer Social History Smoking and tobacco status: never smoked Household members: none Housing: Apartment Current occupational status: retired Vitals/I&O/Wt Last Vital Signs Temp 98.0 F 12/30/22 12:29 Pulse 89 12/30/22 17:00 Resp 15 12/30/22 17:00 BP 169/99 12/30/22 17:00 Pulse Ox 98 12/30/22 17:00 O2 Del Method 12/30/22 12:45 12/30/22 12/30/22 12/30/22 06:59 14:59 22:59 Intake Total 550 / 550 Balance 550 / 550 Weight last 48 hrs Weight 76.204 kg Physical Exam Narrative: General: No acute distress, AO x3 HEENT: PERRLA, pupils bilaterally equal and reactive Chest: Normal vesicular breath sounds, no added sounds, equal good air entry bilaterally CVS: S1-S2 regular, no murmurs, no tachycardia, no gallops, no rubs Abdomen: Soft, nontender, no organomegaly, bowel sounds present Neuro: No focal deficits, no facial deformity, AO x3, power 5/5 in all limbs Data 12/30/22 12:25 12/30/22 12:25 A&P Assessment and plan (1) Acute pyelonephritis: (2) TACO (acute kidney injury): (3) Leukocytosis: (4) Transaminitis: (5) Mild cognitive impairment with memory loss: (6) Residual schizophrenia: Plan History of recurrent UTIs/acute left-sided pyelonephritis: Check blood culture, urine culture. Check MRSA swab, procalcitonin, lactate. Start on normal saline at 75 cc/h. Continue with IV ceftriaxone 1 g daily for now. Will de-escalate antibiotics as per culture results. Keep mean artery pressure 65. Acute kidney injury: Most likely in setting of acute infection along with home d ose of losartan and hydrochlorothiazide. Medical reconciliation done for nephrotoxic drugs. Monitor BMP daily. Hyponatremia: Most likely in setting of dehydration but cannot rule out SIADH given home use of haloperidol and trihexyphenidyl. Monitor BMP daily for now. IV fluid as above. We will continue to monitor. Check urine lites, urine creatinine, urine eosinophils. Hypertension: Goal blood pressure less than 140 over 90 mmHg. Holding off on losartan and hydrochlorothiazide for now. Start on amlodipine 10 mg daily for now. Continue with home dose of metoprolol 25 mg twice daily. Will uptitrate as per goals. Chest pain: Could be secondary to GERD. Troponin cycle negative for now. Protonix and Tums. Continue other chronic medications for schizophrenia including haloperidol and trihexyphenidyl. Full code. Carb consistent cardiac diet. Heparin 5000 every 12 hourly for DVT prophylaxis Protonix for PUD prophylaxis. Attestations Medical Necessity Statement*: Admission for more than 2 midnights for management of acute left-sided pyelonephritis, acute kidney injury Coding Level of Care Code 00527 Diagnoses Acute pyelonephritis N10 TACO (acute kidney injury) N17.9 Leukocytosis D72.829 Transaminitis R74.01 Mild cognitive impairment with memory loss G31.84 Residual schizophrenia F20.5
[2022-12-30 18:11] LABS: Iron 12 ug/dL (37-145); Percent Saturation 6.3 % (20-50); Total Iron Binding Capacity 190 mcg/dl; Unsaturated Iron Binding 178 ug/dL (112-347)
[2022-12-30 18:12] LABS: Amphetamines Screen Urine Negative (Negative); Barbiturates Screen Urine Negative (Negative); Benzodiazepines Screen Urine Negative (Negative); Cocaine Screen Urine Negative (Negative); Opiate Screen Urine Negative (Negative); PCP Screen Urine Negative (Negative); THC Screen Urine Negative (Negative)
[2022-12-30 18:18] LABS: Procalcitonin 5.36 ng/mL (0-0.5)
[2022-12-30 18:27] LABS: Potassium, Radom Urine 31 mmol/L; Urine Creatinine 140 mg/dL (28-217)
[2022-12-30 18:38] LABS: Urine Random Chloride 14 mmol/L; Urine Random Sodium 14 mmol/L
--- NOTE | 2022-12-30 18:39 | ECG_ITS ---
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 Measurements Intervals [place] Rate: 96 P: 109 MO: 196 QRS: 162 QRSD: 81 T: 153 QT: 335 QTc: 425 Interpretive Statements SINUS RHYTHM ARM LEADS REVERSED [INVERTED P AND QRS IN I] Compared to ECG 12/30/2022 15:13:52 No significant changes Electronically Signed On 12-31-2022 8:42:41 RESEARCH DIRECTOR by Frederick Tinoco M.D. [id number]
[2022-12-30 19:20] LABS: Troponin 5 6HR 23.19 ng/L (0-10)
[2022-12-30 19:34] LABS: Thyroid Stimulating Hormone 3.21 uIU/mL (0.27-4.20); Vitamin B12 935 pg/mL (232-1245)
[2022-12-30] MEDS: sodium chloride 0.9% 1,000 ML 75 ML IV (19:45)
[2022-12-30] MEDS: ferrous gluconate 324 mg Tablet PO (19:45)
[2022-12-30] MEDS: pantoprazole 40 mg SDV IVP (19:45)
[2022-12-30] MEDS: amlodipine 10 mg Tablet PO (19:46)
[2022-12-30] MEDS: docusate sodium 100 mg Capsule PO (19:46)
[2022-12-30] MEDS: metoprolol tartrate 25 mg Tablet PO (19:46)
[2022-12-30] MEDS: heparin 5,000 unit/mL INJ 1 mL 5000 UNIT SUBCUT (20:41)
[2022-12-30] MEDS: haloperidol 5 mg Tablet 15 MG PO (20:42)
[2022-12-30] MEDS: atorvastatin 40 mg Tablet 10 MG PO (20:42)
[2022-12-31] VITALS (56 sets, daily range): BP systolic 118–250; BP diastolic 54–141; PULSE 41–94; RESP 9–31; TEMP 37–37.9; O2SAT 84–100
[2022-12-31 00:37] LABS: Hepatitis A Antibody IgM Non-Reactive (Nonreactive); Hepatitis B Core AB, Total Non-Reactive (Nonreactive); Hepatitis B Surface AB 3.5 (11.5-1000); Hepatitis B Surface Antigen Non-Reactive (Nonreactive); Hepatitis C Virus Antibody Non-Reactive (Nonreactive)
[2022-12-31 04:39] LABS: Basophils # 0.1 10^3/uL (0.0-0.1); Basophils % 0.2 %; Hematocrit 30.9 % (37.0-47.0); Hemoglobin 9.8 g/dL (11.5-15.3); Lymphocytes # 1.1 10^3/uL (0.8-4.8); Lymphocytes % 4.1 %; Mean Corpuscular HGB Conc 31.7 g/dL (30.0-36.0); Mean Corpuscular Hemoglobin 27.7 pg (28.0-34.0); Mean Corpuscular Volume 87.3 fl (81-99); Mean Platelet Volume 8.5 fL (7.4-10.4); Monocytes # 1.6 10^3/uL (0.2-0.9); Monocytes % 5.9 %; Neutrophils # 24.72 10^3/uL (1.8-7.7); Nucleated Red Blood Cells % 0 %; Platelet Count 563 10^3/cmm (130-400); Red Blood Count 3.54 10^6/uL (4.1-5.3); Red Cell Distribution Width 14.4 % (12.1-15.1); White Blood Count 27.8 10^3/uL (4.0-10.0)
[2022-12-31 05:03] LABS: Alanine Aminotransferase 68 U/L (0-33); Albumin Level 2.7 g/dL (3.5-5.2); Alkaline Phosphatase 232 U/L (35-105); Anion Gap 17.1 (5-19); Aspartate Amino Transferase 111 U/L (0-32); Blood Urea Nitrogen 17 mg/dL (8-23); Calcium 7.7 mg/dL (8.5-10.5); Carbon Dioxide 22 mmol/L (22-29); Chloride 91 mmol/L (98-107); Chol HDL Ratio 3.35 mg/dL (0.0-4.40); Cholesterol 87 mg/dL (0-200); Globulin 3.1 g/dL (1.3-4.6); Glucose 144 mg/dL (65-115); HDL Cholesterol 26 mg/dL (60-100); LDL Cholesterol Calculated 37 mg/dL (50-129); Magnesium 1.8 mg/dL (1.7-2.3); Osmolality Calculated 268 mOsm/kg (285-295); Phosphorus 2.1 mg/dL (2.5-4.5); Potassium 3.1 mmol/L (3.5-5.1); Sodium 127 mmol/L (136-145); Total Bilirubin 0.2 mg/dL (0.15-1.2); Total Protein 5.8 g/dL (6.6-8.7); Triglycerides 119 mg/dL (0-150); VLDL Cholestrol Calculation 24 mg/dL (0-30)
[2022-12-31 05:14] LABS: Estmated Average Glucose 146; Hemoglobin A1C 6.7 % (4.0-6.0)
[2022-12-31] MEDS: levothyroxine 100 mcg Tablet PO (06:05)
[2022-12-31] MEDS: sodium chloride 0.9% 1,000 ML 75 ML IV ×2 (06:09→16:22)
[2022-12-31] MEDS: ferrous gluconate 324 mg Tablet PO ×2 (09:17→17:43)
[2022-12-31] MEDS: docusate sodium 100 mg Capsule PO ×2 (09:18→17:43)
[2022-12-31] MEDS: metoprolol tartrate 25 mg Tablet PO ×2 (09:18→17:43)
[2022-12-31] MEDS: heparin 5,000 unit/mL INJ 1 mL 5000 UNIT SUBCUT ×2 (09:18→20:22)
[2022-12-31] MEDS: amlodipine 10 mg Tablet PO (09:18)
[2022-12-31] MEDS: ondansetron 2 mg/ML SDV 2 mL 4 MG IVP ×2 (14:28→19:29)
[2022-12-31] MEDS: cefTRIAXone 1,000 MG in sodium chloride 0.9% (plus) 50 ML 100 MG IV (14:28)
--- NOTE | 2022-12-31 15:08 | PM.PN ---
Subjective Subjective: No acute events overnight. Tmax since admission 100.1 Fahrenheit. Today morning on examination patient was complaining of nausea and did have episode of vomiting. Patient is slightly confused which as per her caregiver/primary guardian happens to her in a new place or with infections. Otherwise patient has remained hemodynamically stable and afebrile. Vitals/I&O/Wt Last Vital Signs Temp 99.2 F 12/31/22 11:47 Pulse 86 12/31/22 11:47 Resp 14 12/31/22 08:00 BP 118/64 12/31/22 11:47 Pulse Ox 94 12/31/22 11:47 O2 Del Method 12/31/22 00:00 12/31/22 12/31/22 12/31/22 06:59 14:59 22:59 Intake Total 1260 / 2770 960 / 960 Balance 1260 / 2770 960 / 960 Weight last 48 hrs Weight 76.204 kg Weight 76.204 kg Physical Exam Narrative: General: No acute distress, AO x3 confused HEENT: PERRLA, pupils bilaterally equal and reactive Chest: Normal vesicular breath sounds, no added sounds, equal good air entry bilaterally CVS: S1-S2 regular, no murmurs, no tachycardia, no gallops, no rubs Abdomen: Soft, nontender, no organomegaly, bowel sounds present Neuro: No focal deficits, no facial deformity, AO x3, power 5/5 in all limbs Data 12/31/22 03:58 12/31/22 03:58 Micro: Microbiology 12/30/22 18:10 MRSA Culture - Final Nose 12/30/22 14:02 Urine Culture - Preliminary Urine,Clean Catch Gram Negative Rods 12/30/22 19:15 Blood Culture - Preliminary Blood SPECIMEN COLLECTED 12/30/22 18:28 Blood Culture - Preliminary Blood SPECIMEN COLLECTED A&P Assessment and plan (1) Acute pyelonephritis: (2) TACO (acute kidney injury): (3) Leukocytosis: (4) Transaminitis: (5) Mild cognitive impairment with memory loss: (6) Residual schizophrenia: Plan History of recurrent UTIs/acute left-sided pyelonephritis: Follow-up blood culture, urine culture. Urine cultures so far growing gram-negative rods. MRSA swab negative. Continue with normal saline at 75 cc/h. Continue with IV ceftriaxone 1 g daily for now. Will de-escalate antibiotics as per culture results. Keep mean artery pressure 65. Acute kidney injury: Most likely in setting of acute infection along with home dose of losartan and hydrochlorothiazide. Resolved. Medical reconciliation done for nephrotoxic drugs. Monitor BMP daily. Hyponatremia: Most likely in setting of dehydration but cannot rule out SIADH given home use of haloperidol and trihexyphenidyl. Slight worsening today. 127 versus 129 on admission. Monitor BMP daily for now. IV fluid as above. Start on oral salt supplementation. 1 g twice daily. We will continue to monitor. Urine lites appreciated. Urine sodium only 14. Hypertension: Goal blood pressure less than 140/90 mmHg. Holding off on losartan and hydrochlorothiazide for now. Continue with amlodipine 10 mg, home dose of metoprolol 25 mg twice daily. Will uptitrate as per goals. Chest pain: No active chest pain currently. Could be secondary to GERD. Troponin cycle negative for now. Protonix and Tums. Continue other chronic medications for schizophrenia including haloperidol and trihexyphenidyl. Care discussed in detail with patient's guardian Ms. Hennessy over the phone. All the questions were answered. Full code. Switch diet to soft mechanical for now. Heparin 5000 every 12 hourly for DVT prophylaxis Protonix for PUD prophylaxis. Attestations Medical Necessity Statement*: Requires further hospitalization for management of acute left-sided pyelonephritis, hyponatremia while urine cultures are awaited. and Moderate Time for a total of 45 minutes, includes reviewing past or interval history, examining/interviewing patient, placing orders, counseling patient/family/other support, updating patient/family/other support, discussing plan of care with staff, communicating with other healthcare providers, documenting encounter and coordinating care Diagnoses Acute pyelonephritis N10 TACO (acute kidney injury) N17.9 Leukocytosis D72.829 Transaminitis R74.01 Mild cognitive impairment with memory loss G31.84 Residual schizophrenia F20.5
[2022-12-31] MEDS: potassium chloride ER 20 mEq Tablet 40 MEQ PO (16:21)
[2022-12-31] MEDS: sodium chloride 1 gm Tablet PO ×2 (16:22→17:43)
[2022-12-31] MEDS: pantoprazole 40 mg SDV IVP (17:43)
[2022-12-31] MEDS: haloperidol 5 mg Tablet 15 MG PO (20:21)
[2022-12-31] MEDS: atorvastatin 40 mg Tablet 10 MG PO (20:21)
[2022-12-31 22:26] LABS: Anion Gap 14.7 (5-19); Blood Urea Nitrogen 13 mg/dL (8-23); Calcium 7.5 mg/dL (8.5-10.5); Carbon Dioxide 21 mmol/L (22-29); Chloride 96 mmol/L (98-107); Glucose 115 mg/dL (65-115); Osmolality Calculated 267 mOsm/kg (285-295); Potassium 3.7 mmol/L (3.5-5.1); Sodium 128 mmol/L (136-145)
[2023-01-01] MEDS: lanolin oint 7 gm 1 APPLIC TOPICAL (01:02)
[2023-01-01 03:40] VITALS: BP 143/69; PULSE 89; RESP 16; TEMP 37.8; O2SAT 95
[2023-01-01 04:58] LABS: Basophils # 0.1 10^3/uL (0.0-0.1); Basophils % 0.3 %; Eosinophils # 0.1 10^3/uL (0.0-0.8); Eosinophils % 0.5 %; Hematocrit 27.5 % (37.0-47.0); Hemoglobin 9.1 g/dL (11.5-15.3); Lymphocytes # 0.9 10^3/uL (0.8-4.8); Lymphocytes % 4.8 %; Mean Corpuscular HGB Conc 33.1 g/dL (30.0-36.0); Mean Corpuscular Hemoglobin 28.3 pg (28.0-34.0); Mean Corpuscular Volume 85.4 fl (81-99); Mean Platelet Volume 8.8 fL (7.4-10.4); Monocytes # 1.1 10^3/uL (0.2-0.9); Monocytes % 6.1 %; Neutrophils # 15.48 10^3/uL (1.8-7.7); Neutrophils % 86.8 %; Nucleated Red Blood Cells % 0 %; Platelet Count 546 10^3/cmm (130-400); Red Blood Count 3.22 10^6/uL (4.1-5.3); Red Cell Distribution Width 14.4 % (12.1-15.1); White Blood Count 17.8 10^3/uL (4.0-10.0)
[2023-01-01] MEDS: sodium chloride 0.9% 1,000 ML 75 ML IV ×2 (05:16→17:04)
[2023-01-01 05:17] LABS: Alanine Aminotransferase 123 U/L (0-33); Albumin Level 2.5 g/dL (3.5-5.2); Alkaline Phosphatase 363 U/L (35-105); Anion Gap 13.9 (5-19); Aspartate Amino Transferase 155 U/L (0-32); Blood Urea Nitrogen 10 mg/dL (8-23); Calcium 7.5 mg/dL (8.5-10.5); Carbon Dioxide 23 mmol/L (22-29); Chloride 96 mmol/L (98-107); Globulin 3.1 g/dL (1.3-4.6); Glucose 128 mg/dL (65-115); Osmolality Calculated 269 mOsm/kg (285-295); Potassium 3.9 mmol/L (3.5-5.1); Sodium 129 mmol/L (136-145); Total Bilirubin 0.3 mg/dL (0.15-1.2); Total Protein 5.6 g/dL (6.6-8.7)
[2023-01-01] MEDS: levothyroxine 100 mcg Tablet PO (06:38)
--- NOTE | 2023-01-01 07:15 | PC.NURSE ---
Bedside report completed with Kari Huang, left before signing
[2023-01-01 08:25] VITALS: BP 151/70; PULSE 88; RESP 16; TEMP 36.7; O2SAT 95
[2023-01-01] MEDS: metoprolol tartrate 25 mg Tablet PO ×2 (08:33→17:06)
[2023-01-01] MEDS: sodium chloride 1 gm Tablet PO ×2 (08:33→17:04)
[2023-01-01] MEDS: amlodipine 10 mg Tablet PO (08:33)
[2023-01-01] MEDS: heparin 5,000 unit/mL INJ 1 mL 5000 UNIT SUBCUT ×2 (08:33→20:06)
[2023-01-01] MEDS: ferrous gluconate 324 mg Tablet PO ×2 (08:33→17:04)
[2023-01-01] MEDS: docusate sodium 100 mg Capsule PO ×2 (08:33→17:04)
[2023-01-01 12:00] VITALS: BP 134/59; PULSE 82; RESP 16; TEMP 36.8; O2SAT 95
--- NOTE | 2023-01-01 13:15 | P.PN_ITS ---
Subjective Subjective: Seen this morning. Resting comfortably in bed. Blood pressure 134/59, saturating 95% on room air. States she is feeling okay. Temp 100.0 overnight. Alert oriented x2 and seems to be confused however able to make her needs known and tell me how she is feeling. Vitals/I&O/Wt Last Vital Signs Temp 98.2 F 01/01/23 12:00 Pulse 82 01/01/23 12:00 Resp 16 01/01/23 12:00 BP 134/59 01/01/23 12:00 Pulse Ox 95 01/01/23 12:00 O2 Del Method 01/01/23 12:00 12/31/22 01/01/23 01/01/23 22:59 06:59 14:59 Intake Total 530 / 1490 1000 / 2490 720 / 720 Output Total 300 / 300 Balance 230 / 1190 1000 / 2190 720 / 720 Weight last 48 hrs Weight 76.204 kg Physical Exam Narrative: General: No acute distress, AO x2, appears to be confused. Able to make her needs known however. HEENT: EOMI. Chest: Normal vesicular breath sounds, no added sounds, equal good air entry bilaterally CVS: S1-S2 regular, no murmurs, no tachycardia, Abdomen: Soft, nontender, bowel sounds present Neuro: Grossly nonfocal. Data 01/01/23 04:29 01/01/23 04:29 Micro: Microbiology 12/30/22 14:02 Urine Culture - Final Urine,Clean Catch Klebsiella pneumoniae 12/30/22 19:15 Blood Culture - Preliminary Blood NEGATIVE TO DATE 12/30/22 18:28 Blood Culture - Preliminary Blood NEGATIVE TO DATE 12/30/22 18:10 MRSA Culture - Final Nose A&P Assessment and plan (1) Acute pyelonephritis: (2) TACO (acute kidney injury): (3) Leukocytosis: (4) Transaminitis: (5) Mild cognitive impairment with memory loss: (6) Residual schizophrenia: Plan History of recurrent UTIs/acute left-sided pyelonephritis: Follow-up blood culture, urine culture. Urine cultures so far growing gram-negative rods. MRSA swab negative. Continue with normal saline at 75 cc/h. Continue with IV ceftriaxone 1 g daily for now. Cultures do show Klebsiella pneumonia resistant to ampicillin but sensitive to all other medications. Keep mean artery pressure 65. Acute kidney injury: Most likely in setting of acute infection along with home dose of losartan and hydrochlorothiazide. Resolved. Medical reconciliation done for nephrotoxic drugs. Monitor BMP daily. Hyponatremia: Most likely in setting of dehydration but cannot rule out SIADH given home use of haloperidol and trihexyphenidyl. Slight worsening today. 127 versus 129 on admission. Improved to 129 today. Monitor BMP daily for now. IV fluid as above. Continue on oral salt supplementation. 1 g twice daily. We will continue to monitor. Urine lites appreciated. Urine sodium only 14. Hypertension: Goal blood pressure less than 140/90 mmHg. Holding off on losartan and hydrochlorothiazide for now. Continue with amlodipine 10 mg, home dose of metoprolol 25 mg twice daily. Will uptitrate as per goals. Chest pain: No active chest pain currently. Could be secondary to GERD. Troponin cycle negative for now. Protonix and Tums. Continue other chronic medications for schizophrenia including haloperidol and trihexyphenidyl. Full code. Switch diet to soft mechanical for now. Heparin 5000 every 12 hourly for DVT prophylaxis Protonix for PUD prophylaxis. Attestations Medical Necessity Statement*: Requires further hospitalization for management of acute left-sided pyelonephritis, hyponatremia while urine cultures are awaited. Other Coding Information Focused coding review requested Diagnoses Acute pyelonephritis N10 TACO (acute kidney injury) N17.9 Leukocytosis D72.829 Transaminitis R74.01 Mild cognitive impairment with memory loss G31.84 Residual schizophrenia F20.5
[2023-01-01] MEDS: cefTRIAXone 1,000 MG in sodium chloride 0.9% (plus) 50 ML 100 MG IV (13:26)
[2023-01-01] MEDS: ondansetron 2 mg/ML SDV 2 mL 4 MG IVP (13:30)
[2023-01-01 16:00] VITALS: BP 145/74; PULSE 92; TEMP 36.4; O2SAT 96
[2023-01-01] MEDS: pantoprazole 40 mg SDV IVP (17:02)
--- NOTE | 2023-01-01 17:58 | PC.NURSE ---
Patient resting in bed at this time. Patient may need some PT/OT to encourage more movement. Patient did mention her ears ached. DPOA/niece her bedside. If patient is discharged tomorrow she would like to be notified to be able to come transport patient home.
[2023-01-01 20:00] VITALS: BP 152/80; PULSE 98; RESP 14; TEMP 37.5; O2SAT 95
[2023-01-01] MEDS: haloperidol 5 mg Tablet 15 MG PO (20:06)
[2023-01-01] MEDS: atorvastatin 40 mg Tablet 10 MG PO (20:06)
[2023-01-01 21:44] VITALS: PULSE 92
[2023-01-02] VITALS (8 sets, daily range): BP systolic 153–172; BP diastolic 74–80; PULSE 72–100; RESP 15–18; TEMP 36.7–38.2; O2SAT 92–95
[2023-01-02] MEDS: sodium chloride 0.9% 1,000 ML 75 ML IV ×2 (05:15→20:39)
[2023-01-02] MEDS: levothyroxine 100 mcg Tablet PO (05:15)
[2023-01-02 06:19] LABS: Basophils # 0.1 10^3/uL (0.0-0.1); Basophils % 0.3 %; Eosinophils # 0.1 10^3/uL (0.0-0.8); Eosinophils % 0.6 %; Hematocrit 28.7 % (37.0-47.0); Hemoglobin 9.6 g/dL (11.5-15.3); Lymphocytes # 0.4 10^3/uL (0.8-4.8); Lymphocytes % 2.7 %; Mean Corpuscular HGB Conc 33.4 g/dL (30.0-36.0); Mean Corpuscular Hemoglobin 27.7 pg (28.0-34.0); Mean Corpuscular Volume 82.9 fl (81-99); Mean Platelet Volume 8.4 fL (7.4-10.4); Monocytes # 0.7 10^3/uL (0.2-0.9); Monocytes % 4.3 %; Neutrophils # 14.05 10^3/uL (1.8-7.7); Neutrophils % 91.2 %; Nucleated Red Blood Cells % 0 %; Platelet Count 576 10^3/cmm (130-400); Red Blood Count 3.46 10^6/uL (4.1-5.3); Red Cell Distribution Width 14.6 % (12.1-15.1); White Blood Count 15.4 10^3/uL (4.0-10.0)
[2023-01-02 06:38] LABS: Anion Gap 15.4 (5-19); Blood Urea Nitrogen 9 mg/dL (8-23); Calcium 7.1 mg/dL (8.5-10.5); Carbon Dioxide 22 mmol/L (22-29); Chloride 97 mmol/L (98-107); Glucose 150 mg/dL (65-115); Osmolality Calculated 274 mOsm/kg (285-295); Potassium 3.4 mmol/L (3.5-5.1); Sodium 131 mmol/L (136-145)
[2023-01-02] MEDS: ferrous gluconate 324 mg Tablet PO ×2 (07:46→18:10)
[2023-01-02] MEDS: sodium chloride 1 gm Tablet PO (07:46)
[2023-01-02] MEDS: docusate sodium 100 mg Capsule PO (07:46)
[2023-01-02] MEDS: heparin 5,000 unit/mL INJ 1 mL 5000 UNIT SUBCUT ×2 (07:46→20:34)
[2023-01-02] MEDS: metoprolol tartrate 25 mg Tablet PO ×2 (07:47→18:10)
[2023-01-02] MEDS: amlodipine 10 mg Tablet PO (07:47)
--- NOTE | 2023-01-02 09:56 | PC.CHAP ---
Pastoral Care Encounter/Spiritual Assessment Type of Contact [] Declined aerospace engineer visit [] Patient/Family/Request visit [] Outpatient visit [] Follow-up visit [] Physician referral [] Code/Alert [x] Routine visit [] Staff referral [] Actively dying [] Patient sleeping [] Family support [] [] Out of room [] Palliative care [] [] Receiving care in room [] Pre-surgical visit [] Trauma [] Long length of stay [] ICU visit [] Other: Relational/Emotional Strength [x] Patient feels connected with others/family/visitors/staff [] Distress [] Loneliness/isolation [] Abandonment Spirituality of Patient [x] Person of Liberty [x] Attends [employer] of their Liberty [x] Believes in Prayer [x] Reads Bible or Hoahaoism materials [] There are Spiritual issues to be addressed [employer] Interventions [x] Prayer [x] Active listening [] Non-anxious presence [x] Spiritual/emotional support [] Crisis/trauma care [] Spiritual counseling [] Bereavement support [] Provided bereavement packet [] Provided Bible/devotional materials [] Provided toy/stuffed animal, coloring book to patient or family member [] Provided Communion [] Anointing/[place] [] Salvation [x] Completed spiritual assessment [] Other: Impact on Illness or Injury [] Angry [] Fearful [] Anxious [] Often cries [] Exhaustion [] Unable to work [] Unable to attend voodoo [] Unable to walk/stand [] Unable to read [] Unable to drive [] Unable to eat/drink [] Unable to sleep [] Unable to be with family [] Patient intubated [] Other: Summary Time spent with patient 10 min
--- NOTE | 2023-01-02 12:43 | P.PN_ITS ---
Subjective Subjective: seen this am. no acute events overnight patient is able to answer questions but is confused unsure if this is her usual baseline she answers yes to anything asked. I even tried reverse questions to which she answered yes to all. pt has a guardian and lives alone at [facility] which is not an assissted living facility Vitals/I&O/Wt Last Vital Signs Temp 98.6 F 01/02/23 12:00 Pulse 92 01/02/23 12:00 Resp 18 01/02/23 12:00 BP 172/74 01/02/23 12:00 Pulse Ox 95 01/02/23 12:00 O2 Del Method 01/02/23 07:54 01/01/23 01/02/23 01/02/23 22:59 06:59 14:59 Intake Total 1485 / 2255 1063.75 / 3318.75 Output Total 1600 / 1600 Balance 1485 / 2255 -536.25 / 1718.75 Physical Exam Narrative: General: No acute distress, AO x2, appears to be confused. Able to make her needs known however. HEENT: EOMI. Chest: Normal vesicular breath sounds, no added sounds, equal good air entry bilaterally CVS: S1-S2 regular, no murmurs, no tachycardia, Abdomen: Soft, nontender, bowel sounds present Neuro: Grossly nonfocal. Data 01/02/23 05:54 01/02/23 05:54 Micro: Microbiology 12/30/22 14:02 Urine Culture - Final Urine,Clean Catch Klebsiella pneumoniae A&P Assessment and plan (1) Acute pyelonephritis: (2) TACO (acute kidney injury): (3) Leukocytosis: (4) Transaminitis: (5) Mild cognitive impairment with memory loss: (6) Residual schizophrenia: Plan History of recurrent UTIs/acute left-sided pyelonephritis: Follow-up blood culture, urine culture. Urine cultures so far growing gram-negative rods. MRSA swab negative. Continue with normal saline at 75 cc/h. Continue with IV ceftriaxone 1 g daily for now. Cultures do show Klebsiella pneumonia resistant to ampicillin but sensitive to all other medications. Keep mean artery pressure 65. Acute kidney injury: Most likely in setting of acute infection along with home dose of losartan and hydrochlorothiazide. Resolved. Medical reconciliation done for nephrotoxic drugs. Monitor BMP daily. Hyponatremia: Most likely in setting of dehydration but cannot rule out SIADH given home use of haloperidol and trihexyphenidyl. Slight worsening today. 127 versus 129 on admission. Improved to 129 today. Monitor BMP daily for now. IV fluid as above. Continue on oral salt supplementation. 1 g twice daily. We will continue to monitor. Urine lites appreciated. Urine sodium only 14. Hypertension: Goal blood pressure less than 140/90 mmHg. Holding off on losartan and hydrochlorothiazide for now. Continue with amlodipine 10 mg, home dose of metoprolol 25 mg twice daily. Will uptitrate as per goals. Chest pain: No active chest pain currently. Could be secondary to GERD. Troponin cycle negative for now. Protonix and Tums. Continue other chronic medications for schizophrenia including haloperidol and trihexyphenidyl. Full code. Switch diet to soft mechanical for now. Heparin 5000 every 12 hourly for DVT prophylaxis Protonix for PUD prophylaxis. Occupational therapy eval pending. Attestations Medical Necessity Statement*: Requires further hospitalization for management of acute left-sided pyelonephritis, hyponatremia while urine cultures are awaited. Diagnoses Acute pyelonephritis N10 TACO (acute kidney injury) N17.9 Leukocytosis D72.829 Transaminitis R74.01 Mild cognitive impairment with memory loss G31.84 Residual schizophrenia F20.5
--- NOTE | 2023-01-02 13:11 | PC.SOCIAL ---
Pg 2 IMM Explained to pt's niece/guardian, Eden, Pg 2 IMM. No questions voiced. Provided pt a copy. Initialed, dated, & timed a copy & placed in chart.
[2023-01-02] MEDS: cefTRIAXone 1,000 MG in sodium chloride 0.9% (plus) 50 ML 100 MG IV (14:56)
[2023-01-02] MEDS: pantoprazole 40 mg SDV IVP (18:09)
[2023-01-02] MEDS: haloperidol 5 mg Tablet 15 MG PO (20:34)
[2023-01-02] MEDS: atorvastatin 40 mg Tablet 10 MG PO (20:35)
[2023-01-03] VITALS (7 sets, daily range): BP systolic 110–152; BP diastolic 58–79; PULSE 66–80; RESP 16–18; TEMP 36.3–37; O2SAT 96–97
[2023-01-03] MEDS: levothyroxine 100 mcg Tablet PO (06:28)
[2023-01-03] MEDS: amlodipine 10 mg Tablet PO (09:33)
[2023-01-03] MEDS: metoprolol tartrate 25 mg Tablet PO (09:33)
[2023-01-03] MEDS: heparin 5,000 unit/mL INJ 1 mL 5000 UNIT SUBCUT (09:33)
[2023-01-03] MEDS: docusate sodium 100 mg Capsule PO (09:34)
[2023-01-03] MEDS: ferrous gluconate 324 mg Tablet PO (09:34)
--- NOTE | 2023-01-03 10:14 | PC.NURSE ---
Patient ambulated 75 feet with a walker and had a steady gait. Patient states that she feels like he would be able to go home and get around.
--- NOTE | 2023-01-03 11:13 | P.DS_ITS ---
Discharge Providers Date of Admission: 12/30/22 15:49 Date of Discharge: January 03, 2023 Attending Provider at Admission: Denis Cornejo MD Attending Provider at Discharge: Shameka Lopez MD Primary Care Provider: Sharon Cabral MD Diagnoses at Discharge Discharge Diagnosis (1) Acute pyelonephritis: Status: Acute (2) TACO (acute kidney injury): Status: Resolved (3) Leukocytosis: Status: Acute (4) Transaminitis: Status: Acute (5) Mild cognitive impairment with memory loss: Status: Acute (6) Residual schizophrenia: Status: Acute Reason for Visit Reason for Visit: CHEST PAIN Brief History: Ame Pascual is a 77 year old female with past medical history of schizophrenia, stress incontinence, hypertension, hypothyroidism presented to the ER today with complaints of cold sweats, heartburn, nausea along with pain and burning while passing urine for last 3 to 4 days.? Patient thought she has been having heart attack so she came to the ER.? In the ER she was found to have a leukocytosis of 33,000 and a creatinine of 1.[address] abdomen pelvis was done which is consistent with left-sided pyelonephritis since hospital service was consulted for admission. Patient herself denies any headache, dizziness, palpitations, diarrhea.? States she has been having ear infection for which she has been following with a primary care for last 1 year but denies any active complaints right now related to the ear. Hospital Course Hospital Course for/hyponatremia also present which has improved with oral salt supplementation. Also had TACO on admission which has resolved by now.. She has a guardian at home. Patient was seen by Occupational Therapy as well. Assisted living facility was recommended however patient has her own apartment and the guardian is available for help. She will be discharged to home in stable condition. Patient can do her own laundry and can get around and clean her apartment as well. We will set up home health for the patient. She is to complete total 14 days of her antibiotics at discharge. She will also be given a prescription to recheck her BMP in 3 days and then again in 1 week to keep an eye on the sodium. She will follow-up with her primary care doctor at discharge. Physical Exam Narrative: General: No acute distress, AO x2, appears to be confused. Able to make her needs known however. HEENT: EOMI. Chest: Normal vesicular breath sounds, no added sounds, equal good air entry bilaterally CVS: S1-S2 regular, no murmurs, no tachycardia, Abdomen: Soft, nontender, bowel sounds present Neuro: Grossly nonfocal. Discharge Data Studies Completed and Pending Completed Studies During Hospitalization Category Date Time Status CT abdomen pelvis wo con [id number] Stat Cat Scan 12/30/22 13:51 Completed XR chest 1V portable [id number] Stat Exams 12/30/22 12:39 Completed Pending at discharge Category Date Time Status Blood Culture Stat Lab 12/30/22 19:15 Results Radiology Impressions Chest X-Ray 12/30/22 12:39 IMPRESSION: Decreased lung volumes otherwise negative chest. Abdomen/Pelvis CT 12/30/22 13:51 IMPRESSION: 1. Mild localized inflammatory changes left anterior pararenal space of uncertain etiology. Consider acute left pyelonephritis, left renal vein thrombosis or focal pancreatitis involving the pancreatic tail. Contrast enhanced CT exam suggested for further assessment. 2. Mild periaortic retroperitoneal lymphadenopathy, nonspecific, possibly long-standing. Recommend repeat CT exam in 6 months for continued surveillance. 2. Additional nonemergent findings as above. Laboratory Results WBC 15.4 10^3/uL (4.0-10.0) H 01/02/23 05:54 RBC 3.46 10^6/uL (4.1-5.3) L 01/02/23 05:54 Hgb 9.6 g/dL (11.5-15.3) L 01/02/23 05:54 Hct 28.7 % (37.0-47.0) L 01/02/23 05:54 MCV 82.9 fl (81-99) 01/02/23 05:54 MCH 27.7 pg (28.0-34.0) L 01/02/23 05:54 MCHC 33.4 g/dL (30.0-36.0) 01/02/23 05:54 RDW 14.6 % (12.1-15.1) 01/02/23 05:54 Plt Count 576 10^3/cmm (130-400) H 01/02/23 05:54 MPV 8.4 fL (7.4-10.4) 01/02/23 05:54 Neut % (Auto) 91.2 % 01/02/23 05:54 Lymph % (Auto) 2.7 % 01/02/23 05:54 Benzie % (Auto) 4.3 % 01/02/23 05:54 Eos % (Auto) 0.6 % 01/02/23 05:54 Baso % (Auto) 0.3 % 01/02/23 05:54 Neut # (Auto) 14.05 10^3/uL (1.8-7.7) H 01/02/23 05:54 Lymph # (Auto) 0.4 10^3/uL (0.8-4.8) L 01/02/23 05:54 Benzie # (Auto) 0.7 10^3/uL (0.2-0.9) 01/02/23 05:54 Eos # (Auto) 0.1 10^3/uL (0.0-0.8) 01/02/23 05:54 Baso # (Auto) 0.1 10^3/uL (0.0-0.1) 01/02/23 05:54 Nucleated RBC % (auto) 0 % 01/02/23 05:54 Nucleated RBCs # 0.0 /100WBC 01/02/23 05:54 Sodium 131 mmol/L (136-145) L 01/02/23 05:54 Potassium 3.4 mmol/L (3.5-5.1) L 01/02/23 05:54 Chloride 97 mmol/L (98-107) L 01/02/23 05:54 Carbon Dioxide 22 mmol/L (22-29) 01/02/23 05:54 Anion Gap 15.4 (5-19) 01/02/23 05:54 BUN 9 mg/dL (8-23) 01/02/23 05:54 Creatinine 0.7 mg/dL (0.5-0.9) 01/02/23 05:54 GFR Calculation Not Reportable 01/02/23 05:54 Glucose 150 mg/dL (65-115) H 01/02/23 05:54 Estimat Average Glucose 146 12/31/22 03:58 Hemoglobin A1c 6.7 % (4.0-6.0) H 12/31/22 03:58 Calculated Osmolality 274 mOsm/kg (285-295) L 01/02/23 05:54 Calcium 7.1 mg/dL (8.5-10.5) L 01/02/23 05:54 Phosphorus 2.1 mg/dL (2.5-4.5) L 12/31/22 03:58 Magnesium 1.8 mg/dL (1.7-2.3) 12/31/22 03:58 Iron 12 ug/dL (37-145) L 12/30/22 12:25 TIBC 190 mcg/dl 12/30/22 12:25 % Saturation 6.3 % (20-50) L 12/30/22 12:25 Unsat Iron Binding 178 ug/dL (112-347) 12/30/22 12:25 Total Bilirubin 0.3 mg/dL (0.15-1.2) 01/01/23 04:29 AST 155 U/L (0-32) H 01/01/23 04:29 ALT 123 U/L (0-33) H 01/01/23 04:29 Alkaline Phosphatase 363 U/L (35-105) H 01/01/23 04:29 Troponin T Baseline 33 ng/L (0-10) H 12/30/22 12:25 Troponin T 120 Minute 27.05 ng/L (0-10) H 12/30/22 14:25 Delta Troponin T -5.95 ABS# (0-10) L 12/30/22 14:25 Troponin T Hi Sens 6Hr 23.19 ng/L (0-10) H 12/30/22 18:29 Troponin T Hi Sens 6Hr Delta -9.81 ng/L (0-12) L 12/30/22 18:29 Total Protein 5.6 g/dL (6.6-8.7) L 01/01/23 04:29 Albumin 2.5 g/dL (3.5-5.2) L 01/01/23 04:29 Globulin 3.1 g/dL (1.3-4.6) 01/01/23 04:29 Triglycerides 119 mg/dL (0-150) 12/31/22 03:58 Cholesterol 87 mg/dL (0-200) 12/31/22 03:58 LDL Cholesterol, Calc 37 mg/dL (50-129) L 12/31/22 03:58 Total VLDL Cholesterol 24 mg/dL (0-30) 12/31/22 03:58 HDL Cholesterol 26 mg/dL (60-100) L 12/31/22 03:58 Cholesterol/HDL Ratio 3.35 mg/dL (0.0-4.40) 12/31/22 03:58 Lipase 13 U/L (13-60) 12/30/22 12:25 Vitamin B12 935 pg/mL (232-1245) 12/30/22 12:25 Folate 20.0 ng/mL (4.8-37.3) 12/30/22 12:25 Procalcitonin 5.36 ng/mL (0-0.5) H 12/30/22 12:25 TSH 3.21 uIU/mL (0.27-4.20) 12/30/22 12:25 Urine Color Yellow (Yellow) 12/30/22 14:02 Urine Appearance Cloudy (CLEAR) A 12/30/22 14:02 Urine pH 6 (5-7) 12/30/22 14:02 Ur Specific Colbert 1.010 (1.005-1.030) 12/30/22 14:02 Urine Protein 2+ (Negative) H 12/30/22 14:02 Urine Glucose (UA) Norm (Normal) 12/30/22 14:02 Urine Ketones 1+ (Negative) H 12/30/22 14:02 Urine Blood 3+ (Negative) H 12/30/22 14:02 Urine Nitrate Negative (Negative) 12/30/22 14:02 Urine Bilirubin Neg (Negative) 12/30/22 14:02 Urine Urobilinogen Norm mg/dL (Negative) 12/30/22 14:02 Ur Leukocyte Esterase 2+ (Negative) H 12/30/22 14:02 Urine RBC None /hpf (0-2) 12/30/22 14:02 Urine WBC 55-80 /hpf (0-5) H 12/30/22 14:02 Ur Squamous Epith Cells 0-4 /hpf (0-5) H 12/30/22 14:02 Amorphous Sediment Not Reportable 12/30/22 14:02 Urine Bacteria 4+ /hpf (NONE) H 12/30/22 14:02 Ur Random Sodium 14 mmol/L 12/30/22 14:02 Ur Random Potassium 31 mmol/L 12/30/22 14:02 Ur Random Chloride 14 mmol/L 12/30/22 14:02 Urine Creatinine 140 mg/dL (28-217) 12/30/22 14:02 Urine Opiates Screen Negative ng/mL (Negative) 12/30/22 14:02 Ur Barbiturates Screen Negative ng/mL (Negative) 12/30/22 14:02 Ur Phencyclidine Scrn Negative ng/mL (Negative) 12/30/22 14:02 Ur Amphetamines Screen Negative ng/mL (Negative) 12/30/22 14:02 U Benzodiazepines Scrn Negative ng/mL (Negative) 12/30/22 14:02 Urine Cocaine Screen Negative ng/mL (Negative) 12/30/22 14:02 U Marijuana (THC) Screen Negative ng/mL (Negative) 12/30/22 14:02 Hepatitis A IgM Ab Non-reactive (Nonreactive) 12/30/22 12:25 Hep Bs Antigen Non-reactive (Nonreactive) 12/30/22 12:25 Hep Bs Antibody 3.5 (11.5-1000) L 12/30/22 12:25 Hep B Core Total Ab Non-reactive (Nonreactive) 12/30/22 12:25 Hepatitis C Antibody Non-reactive (Nonreactive) 12/30/22 12:25 Influenza Type A Ag negative (Negative) 12/30/22 12:50 Influenza Type B Ag negative (Negative) 12/30/22 12:50 SARS-CoV-2 Ag (Rapid) negative (Negative) 12/30/22 12:50 Vitals Last Vital Signs Temp 97.7 F 01/03/23 08:00 Pulse 66 01/03/23 08:00 Resp 17 01/03/23 08:00 BP 130/69 01/03/23 08:00 Pulse Ox 97 01/03/23 08:00 O2 Del Method 01/03/23 08:00 Discharge Plan Discharge Patient Disposition: Home Health Service Condition: Stable Prescriptions: New amlodipine 10 mg Tablet 10 mg PO DAILY 30 Days Qty: 30 0RF sodium chloride 1,000 mg Tablet,Soluble 1 g PO BID 30 Days Qty: 60 0RF ferrous gluconate 324 mg (37.5 mg iron) Tablet 324 mg PO BIDWM 30 Days Qty: 30 0RF cefuroxime axetil 500 mg tablet 500 mg PO BID 11 Days Qty: 22 0RF Continued loratadine 10 mg capsule 10 mg PO QAM loperamide [Imodium A-D] 2 mg capsule 2 mg PO Q6H PRN (Reason: Diarrhea) nitroglycerin 0.3 mg tablet, sublingual 0.3 mg sublingual Q5M PRN (Reason: Chest Pain) Rx Instructions: do not exceed 3 doses per episode levocetirizine [24HR Allergy Relief] 5 mg tablet 5 mg PO DAILY trihexyphenidyl 2 mg tablet 2 mg PO BEDTIME Qty: 30 2RF haloperidol 10 mg tablet 15 mg PO BEDTIME Qty: 45 2RF atorvastatin 10 mg tablet 10 mg PO BEDTIME famotidine 20 mg tablet 20 mg PO QAM metformin 500 mg tablet extended release 24 hr 500 mg PO QAM metoprolol tartrate 25 mg Tablet 25 mg PO BID levothyroxine 88 mcg tablet 100 mcg PO QAM Hair,Skin and Nails 1 mg iron-66.7 mcg-1,000 mcg Tablet 1 tab PO DAILY Discontinued losartan [Cozaar] 25 mg tablet 25 mg PO QAM hydrochlorothiazide 12.5 mg capsule 12.5 mg PO DAILY Discharge Orders: Discharge Order (Routine); Ordered 01/03/23 Ordered By: Shameka Lopez Other Ambulatory Orders: Basic Metabolic Panel (Routine) Timeframe: 3 Days Facility: [facility] - Location: Lab - Main Lab Ordered By: Shameka Lopez Basic Metabolic Panel (Routine) Timeframe: 1 Week Facility: [facility] - Location: Lab - Main Lab Ordered By: Shameka Lopez Referrals: [facility] ([facility]) [Outside] Niecy Cevallos FNP [Staff Physician] - 01/09/23 10:45 am Discharge Diet: Soft Mechanical Discharge Activity: Resume usual activity and Use walker/crutches as instructed Patient Instructions: Cefuroxime (By mouth), Iron Supplements (By mouth), Amlodipine (By mouth), Sodium Chloride (By mouth), Hyponatremia, Opioid Safety, Pyelonephritis Activity Restrictions/Additional Instructions: Please return to ER if you develop a fever, abdominal pain or any worsening of symptoms of development of new symptoms. Be sure to follow up with your primary care doctor within 4-7 days of discharge. Your sodium levels were low and you have been placed on salt tablets. Please get your labs checked as directed. Discharge Attestations Time Spent in Discharge Care*: greater than 30 min Quality Metrics Clinical Quality Measures [ No reported AMI, CVA or VTE this stay] Coding Level of Care Code Acute Code for Chg Fwd Diagnoses Acute pyelonephritis N10 TACO (acute kidney injury) N17.9 Leukocytosis D72.829 Transaminitis R74.01 Mild cognitive impairment with memory loss G31.84 Residual schizophrenia F20.5
--- NOTE | 2023-01-03 17:15 | PC.NURSE ---
IV removed intact. Patient tolerated well. Patient is A&Ox3. Respirations even and non-labored on room air. Reviewed patient's discharge instructions with patient and May her guardian. May verbalized understanding of discharge instructions. Patient wheel chair to private car.
== END 2023-01-03 17:15 | disposition home health service (06) | DRG 690 ==
LOC: ER 13:06 → MEDSURG 17:08
PROVIDERS: Admitting Provider Student in an Organized Health Care Education/Training Program; Emergency Provider Emergency Medicine; PCP Specialist; Visit Provider Internal Medicine
DX: N10 Acute pyelonephritis (principal); E87.1 Hypo-osmolality and hyponatremia; F20.5 Residual schizophrenia; N17.9 Acute kidney failure, unspecified; G31.84 Mild cognitive impairment of uncertain or unknown etiology; I10 Essential (primary) hypertension; E03.9 Hypothyroidism, unspecified; R11.2 Nausea with vomiting, unspecified; R07.9 Chest pain, unspecified
CPT/HCPCS: 36415; 51701; 71045; 74176; 80048; 80053; 80061; 80306; 81001; 82436; 82570; 82607; 82746; 83036; 83540; 83550; 83690; 83735; 84100; 84133; 84145; 84300; 84443; 84484; 85025; 86705; 86706; 86709; 86803; 87040; 87077; 87086; 87186; 87340; 87426; 87493; 87641; 87804; 93005; 96365; 96372; 96376; 97162; 97167; 97535; 99285; C9113; J0696; J1644; J2405; J7030; J7040

== ENCOUNTER 2023-07-27 13:56 | Outpatient (CLI) | payer MEDICARE, MEDICAID, SELFPAY ==
--- NOTE | 2023-07-27 14:09 | CT_ITS ---
WS: [id number] CT ABDOMEN AND PELVIS WITH CONTRAST HISTORY: Lymphadenopathy. Abdominal pain. TECHNIQUE: Imaging performed of the abdomen and pelvis with IV contrast. Single phase imaging of the abdomen. Coronal and sagittal reformats are submitted. All CT scans at [facility] use at [address] one of these dose optimization techniques: automated exposure control; mA and/or kV adjustment per patient size (includes targeted exams where dose is matched to clinical indication); or iterative re construction. IV CONTRAST: Omnipaque 350; 100 mL IV. Oral contrast: Yes. DLP: 450.30 mGy.cm COMPARISON: 12/30/2022 Lower thorax: Lung bases are clear. Heart is normal size. Small hiatal hernia. Liver/biliary system: Normal size liver. 4 mm cyst along the falciform ligament. No bile duct dilatat ion. Normal portal vein. Gallbladder: Markedly contracted gallbladder without adjacent inflammation. Pancreas: Mild diffuse pancreatic atrophy. No bile duct dilatation. Spleen: Normal size spleen. No mass or infarct. Adrenal glands: Normal. Right kidney: Normal size RIGHT kidney. Cortical scarring and thinning in the upper and lower poles. No calcification or obstruction. Left kidney: Normal size LEFT kidney with focal areas of cortical thinning and scarring throughout th e cortex. No calcification. There is an extrarenal pelvis. There is a very subtle area of decreased a ttenuation involving the superior anterior upper pole calyx. This area measures approximately 10 x 11 mm. Previously described stranding surrounding the LEFT kidney and the anterior and posterior parare nal spaces has resolved. Aorta: Mild atherosclerosis with no aneurysm. Lymphadenopathy: Small shotty retroperitoneal lymph nodes. No adenopathy. Free fluid: None. GI tract: Stomach is well distended with oral contrast. No small bowel obstruction. Moderate diffuse constipation. Appendix is not identified. Abdominal wall: Unremarkable abdominal wall. No hernia. Pelvis: No free fluid or adenopathy within the pelvis. Normal urinary bladder. Atrophic uterus. No ad enopathy. Bones: Advanced degenerative spondylitic changes at L2-3. No fractures. Multilevel areas of lumbar st enosis. Most significant at L4-5. IMPRESSION: 1. Low-attenuation soft tissue in the superior anterior LEFT pelvicalyceal system. This is a very camp btle finding but early uroepithelial neoplasm is not excluded. Consider evaluation by urology. 2. Previously described LEFT perinephric stranding has resolved. 3. Contracted gallbladder, probably due to nonfasting state. 4. Mild pancreatic atrophy. 5. No GI tract obstruction. Moderate diffuse constipation. Appendix is not identified. 6. No significant retroperitoneal adenopathy. Small lymph nodes previously described have resolved.
[2023-07-27] MEDS: iohexol 350 mg/mL 500 mL Btl (per mL) PO (15:17)
[2023-07-27] MEDS: iohexol 350 mg/mL 500 mL Btl (per mL) IV (15:17)
[2023-07-27 16:13] LABS: Blood Urea Nitrogen 12 mg/dL (8-23)
== END 2023-07-27 13:57 | disposition home or self-care (01) ==
PROVIDERS: PCP Specialist; Visit Provider Nurse Practitioner Family
DX: R59.1 Generalized enlarged lymph nodes (principal); R10.9 Unspecified abdominal pain; R93.5 Abnormal findings on diagnostic imaging of other abdominal regions, including retroperitoneum
CPT/HCPCS: 74177; 82565; 84520; Q9967

== ENCOUNTER → 2024-12-29 13:37 | Outpatient (BNVA) | payer MEDICARE, MEDICAID, SELFPAY | PROVIDERS: PCP Nurse Practitioner Family; Visit Provider Specialist | DX: M17.0 Bilateral primary osteoarthritis of knee (principal) | CPT/HCPCS: 20610; 73560; 73565; 99214; J7326 ==

== ENCOUNTER → 2025-02-19 13:24 | Outpatient (BNVA) | payer MEDICARE, MEDICAID, SELFPAY | PROVIDERS: PCP Nurse Practitioner Family; Visit Provider Internal Medicine | DX: R07.89 Other chest pain (principal); R06.00 Dyspnea, unspecified; I10 Essential (primary) hypertension; Z87.891 Personal history of nicotine dependence | CPT/HCPCS: 93005; 99204 ==

== ENCOUNTER 2025-03-23 09:11 | Outpatient (CLI) | payer MEDICARE, MEDICAID, SELFPAY ==
--- NOTE | 2025-03-23 | ECG_ITS ---
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 Interpretive Statements Lung unchanged pre/post procedure; Intraprocedure shortess of breath; Symptoms resoled by discharge PROCEDURE: At the baseline, the EKG revealed normal sinus rhythm with a poor R wave progression. Low voltage complexes in the precordial leads. The baseline heart was 60 bpm with a blood pressue of 120/63 mm of Hg Lexiscan was infused over a period of 20 seconds. A total of 0.4 milligrams of Lexiscan was infused. The stress phase was continued for a total of 5 minutes. Heart rate at the end of the stress phase was 69 bpm with a blood pressure 155/40 mm of Hg. The EKG at the peak infusion revealed no significant changes. Sestamibi was injected 20 seconds after the Lexiscan infusion. Heart rate at the end of the recovery phase was 67 bpm with a blood pressure of 100/57 mm of Hg. CONCLUSION: 1. No significant EKG changes with the LexiScan infusion 2. No LexiScan induced chest pain or cardiac arrhythmia 3. Normal blood pressure and heart rate response 4. Sestamibi/sestamibi perfusion scan pending; see separate report. Electronically Signed On 03-30-2025 14:46:04 CDT by Stefano Guzmán M.D. [email or web address]
[2025-03-23 09:22] VITALS: BMI 34.7
--- NOTE | 2025-03-23 09:26 | NMCV_ITS ---
NM son perf SPECT r/s* [id number] Ame Pascual Age: 79 Gender: F : 1945 Exam Date: 03/23/2025 10:37 Ordering Phys: Adis Cruz M.D ([email or web address]) Technologist: RANDY Lo Exam Location: [facility] Indications: cp STRESS TEST [facility] IMAGE PROTOCOL Rest/Stress 1 Lexiscan Day Radiopharmaceutical Dose (mCi) Administration Site Administered by Rest: Tc-99m 10.7 IV RANDY Lo Sestamibi Stress:Tc-99m 32.5 IV RANDY Momin Sestamibi Rest: 23-Mar-2025 60 Discovery 630 Stress: 23-Mar-2025 30 Discovery 630 0.4mg Lexiscan. Images obtained in supine and prone position. SPECT RESULTS Technical Quality: Good Raw Data Analysis: Normal Image Corrections: No attenuation or motion correction applied Summed Stress Score: 0 Summed Rest Score: 5 Summed Difference Score: 0 PERFUSION FINDINGS SPECT images demonstrate homogeneous tracer distribution throughout the myocardium. FUNCTIONAL RESULTS (calculated via Gated SPECT) Stress Image LV EF (%): 90 Stress EDV (mL):69 TID: 1.03 Stress ESV (mL):7 FUNCTIONAL FINDINGS: There is normal left ventricular systolic function. IMPRESSIONS 1. Normal myocardial perfusion imaging with no evidence of ischemia 2. LV systolic function is normal Adis Cruz MD (Electronically Signed) Final Date: 23 Mar 2025 14:54 S
[2025-03-23] MEDS: regadenoson 0.4 Mg/5 ml Syringe IVP (11:06)
[2025-03-23 11:22] VITALS: BP 105/64; PULSE 66
--- NOTE | 2025-03-23 15:00 | USCV_ITS ---
Ame Pascual Age: 79 Gender: F : 1945 Exam Date: 03/23/2025 12:34 Ordering Phys: Adis Cruz M.D ([email or web address]) Technologist: Exam Location: [facility] [place], [place] Indication: cp sob BP: 130 / 80 HR: 1052 Rhythm: Sinus Technical Quality: Adequate MEASUREMENTS (Male / Female) Normal Values 2D ECHO LV Diastolic Diameter PLAX 3.9 cm 4.2 - 5.9 / 3.9 - 5.3 cm IVS Diastolic Thickness 0.9 cm 0.6 - 1.0 / 0.6 - 0.9 cm IVS Systolic Thickness 1.5 cm LVPW Diastolic Thickness 1.3 cm 0.6 - 1.0 / 0.6 - 0.9 cm LVPW Systolic Thickness 1.8 cm LVOT Diameter 2.1 cm LV Ejection Fraction 2D Teich 63.3 % LV Ejection Fraction MOD 4C 59.6 % LV Ejection Fraction MOD 2C 59.5 % LV Ejection Fraction 2C AL 60.4 % LA Diameter 3.5 cm RA Systolic Volume 4C AL 48.1 ml RA Systolic Volume 4C MOD 45.9 ml Aorta at Sinotubular Diameter 2.7 cm IVC Diameter 1.9 cm M-MODE LA Ao Ratio MM 1.4 AV Cusp Separation MM 2.0 cm DOPPLER AV Peak Velocity 140.0 cm/s LVOT Peak Velocity 92.0 cm/s AV Area Cont Eq vti 2.8 cm squared AV Area Cont Eq pk 2.2 cm squared MV Peak Velocity 63.0 cm/s MV Area PHT 2.6 cm squared Mitral E to A Ratio 0.9 TV Peak Velocity 248.0 cm/s TR Peak Velocity 302.0 cm/s TR Peak Gradient 36.5 mmHg TV Peak E Velocity 125.0 cm/s PV Peak Velocity 95.0 cm/s FINDINGS Left Ventricle Left ventricle is normal in size. LV systolic function is normal with EF of 55-60%. No regional wall motion abnormalities. Grade 1 diastolic dysfunction Right Ventricle Normal in size and function Right Atrium Normal in size Left Atrium Normal in size Mitral Valve Structurally normal mitral valve. Mild mitral regurgitation Aortic Valve Structurally normal aortic valve. No significant stenosis or regurgitation. Tricuspid Valve Insufficient TR jet to calculate RVSP Pulmonic Valve Mild pulmonic regurgitation. Pericardium Normal Aorta Normal in size IVC Appears to be normal CONCLUSIONS LV systolic function is normal with EF of 55-60% Grade 1 diastolic dysfunction Mild mitral regurgitation Mild pulmonic regurgitation. No comparison studies are available. Adis Cruz MD (Electronically Signed) Final Date: 04 Apr 2025 21:21 S
== END 2025-03-23 09:12 | disposition home or self-care (01) ==
LOC: CDL 09:14
PROVIDERS: PCP Nurse Practitioner Family; Visit Provider Internal Medicine
DX: R07.9 Chest pain, unspecified (principal); R06.09 Other forms of dyspnea; R93.1 Abnormal findings on diagnostic imaging of heart and coronary circulation; I34.0 Nonrheumatic mitral (valve) insufficiency; I37.1 Nonrheumatic pulmonary valve insufficiency
CPT/HCPCS: 36415; 78452; 93017; 93306; 96374; A9500; J2785

== ENCOUNTER → 2025-04-30 12:51 | Outpatient (BNVA) | payer MEDICARE, MEDICAID, SELFPAY | PROVIDERS: PCP Nurse Practitioner Family; Visit Provider Internal Medicine | DX: R07.9 Chest pain, unspecified (principal); I10 Essential (primary) hypertension | CPT/HCPCS: 99214 ==